=== PATIENT | male | born 1960 | race Two or more races ===

== ENCOUNTER 2023-03-28 16:49 | Inpatient (IN) | payer MEDICAID, OTHER ==
[~2023-03-28] VITALS: Ht 165.1 cm; Wt 75.0 kg
[~2023-03-28 16:49] MED LIST: ENAL2.5T7 PO; TERB250T66 PO
[2023-03-28] MEDS ORDERED: ACETAMINOPHEN 325 MG TAB PO ONE (18:00)
[2023-03-28] MEDS ORDERED: SODIUM CHLORIDE 0.9% 1,000 ML IV ONE (18:00)
[2023-03-28] MEDS ORDERED: KETOROLAC TROMETH 30 MG/ML 1ML VIAL IV ONE (18:00)
[2023-03-28 18:11] LABS: Basophils # (auto) 0.1 10 ^3/uL (0-0.2); Basophils % (auto) 0.6 % (0.0-2.0); Eosinophils # (auto) 0.1 10 ^3/uL (0-0.8); Eosinophils % (auto) 0.9 % (0.0-7.0); Hematocrit 44.9 % (41.0-53.0); Lymphocytes # (auto) 2.1 10 ^3/uL (0.4-5.4); Lymphocytes % (auto) 20.3 % (10.0-50.0); Mean Corpuscular Hemoglobin 33.3 pg (28.0-32.0); Mean Corpuscular Hgb Conc. 35.6 g/dL (32.0-36.0); Mean Corpuscular Volume 93.4 fL (80.0-100.0); Monocytes # (auto) 0.9 10 ^3/uL (0-1.3); Monocytes % (auto) 9.2 % (0.0-12.0); Neutrophils # (auto) 7.1 10 ^3/uL (1.6-8.6); Nucleated Red Blood Cells % 0.1 %; Red Blood Cells 4.81 10^6/uL (4.5-5.90); Red Cell Distribution Width 12.8 % (11.8-14.3); White Blood Cell 10.2 10^3/uL (4.4-10.8)
[2023-03-28 18:51] LABS: Albumin 3.6 g/dL (3.4-5.0); Bilirubin, Total 2.1 mg/dL (0.2-1.0); Calcium 8.8 mg/dL (8.5-10.1); Potassium 3.6 mmol/L (3.5-5.1); Total Protein 7.7 g/dL (6.4-8.2)
[2023-03-28 19:05] LABS: Urine Bacteria NONE SEEN /hpf (None Seen); Urine Blood Negative /uL (Negative); Urine Mucus MODERATE (None Seen); Urine Specific Gravity 1.031 (1.001-1.035); Urine WBC 3 /hpf (0 - 3)
[2023-03-28] MEDS ORDERED: IOHEXOL 300 MG/ML 100ML BOTTLE IJ ONE (19:11)
[2023-03-28] MEDS ORDERED: cefTRIAXone 1GM/50ML D5W 50 ML IV ONE (21:15)
[2023-03-28] MEDS ORDERED: metroNIDAZOLE 500MG/100ML 100 ML IV ONE (21:15)
[2023-03-28] MEDS ORDERED: ACETAMINOPHEN 325 MG TAB PO PRN (22:30)
[2023-03-28] MEDS ORDERED: DEXTROSE (50%) 50ML SYRG IV PRN (22:30)
[2023-03-28] MEDS ORDERED: ONDANSETRON HCL 4 MG/2 ML VIAL IV PRN (22:30)
[2023-03-28] MEDS ORDERED: HYDROcodone-ACET 5/325MG TAB PO PRN (22:30)
[2023-03-28] MEDS ORDERED: DOCUSATE SOD 100 MG CAP PO PRN (22:30)
[2023-03-28] MEDS ORDERED: MORPHINE SULFATE INJ 2 MG/ml SYRG IV PRN (22:30)
[2023-03-28] MEDS: SODIUM CHLORIDE 0.9% 1,000 ML IV SCH (23:50)
[2023-03-29] MEDS ORDERED: MORPHINE SULFATE INJ 2 MG/ml SYRG IV PRN
[2023-03-29] MEDS ORDERED: NITROGLYCERIN 0.4 MG SL TAB SL PRN
[2023-03-29] MEDS: ACCU-CHEK COMFORT CURVE STRIP VI SCH ×4 (00:21→18:05)
[2023-03-29 01:22] VITALS: BP 136/102
[2023-03-29 01:41] VITALS: BP 136/102
[2023-03-29 03:43] VITALS: BP 96/67
[2023-03-29] MEDS: InsuLIN REG 1unit/0.01ml Soln (100units/ml) SC SCH ×4 (06:00→18:05)
[2023-03-29 06:08] LABS: Albumin 3.3 g/dL (3.4-5.0); BUN/Creatinine Ratio 22.7 (10.0-20.0); Calcium 8.1 mg/dL (8.5-10.1); Potassium 3.7 mmol/L (3.5-5.1)
[2023-03-29 06:11] LABS: Bilirubin, Total 1.4 mg/dL (0.2-1.0)
[2023-03-29 06:33] LABS: Basophils # (auto) 0 10 ^3/uL (0-0.2); Eosinophils # (auto) 0.2 10 ^3/uL (0-0.8); Monocytes # (auto) 0.6 10 ^3/uL (0-1.3); Red Cell Distribution Width 12.7 % (11.8-14.3)
[2023-03-29 06:36] LABS: Basophils % (auto) 0.1 % (0.0-2.0); Eosinophils % (auto) 2.2 % (0.0-7.0); Hematocrit 40.7 % (41.0-53.0); Hemoglobin 14.7 g/dL (13.5-17.5); Lymphocytes # (auto) 1.2 10 ^3/uL (0.4-5.4); Lymphocytes % (auto) 16.7 % (10.0-50.0); Mean Corpuscular Hemoglobin 33.2 pg (28.0-32.0); Mean Corpuscular Volume 92.3 fL (80.0-100.0); Monocytes % (auto) 7.9 % (0.0-12.0); Neutrophils # (auto) 5.4 10 ^3/uL (1.6-8.6); Neutrophils % (auto) 73.1 % (37.0-80.0); Red Blood Cells 4.42 10^6/uL (4.5-5.90); White Blood Cell 7.3 10^3/uL (4.4-10.8)
[2023-03-29] MEDS: metroNIDAZOLE 500MG/100ML 100 ML IV SCH ×3 (06:48→21:35)
[2023-03-29] MEDS: cefTRIAXone 1GM/50ML D5W 50 ML IV SCH (09:37)
[2023-03-29] MEDS: FAMOTIDINE (10MG/ML) 2ML VL IV SCH (12:35)
[2023-03-29] MEDS ORDERED: TAMS0.4C36 PO (13:17)
[2023-03-29] MEDS ORDERED: METF-370 PO (13:17)
[2023-03-29] MEDS ORDERED: OMEP-260 PO (13:17)
[2023-03-29] MEDS: SODIUM CHLORIDE 0.9% 1,000 ML IV SCH (15:30)
[2023-03-29 16:30] VITALS: BP 140/96
[2023-03-29 22:00] VITALS: BP 124/87
[2023-03-30 05:00] VITALS: BP 124/89
[2023-03-30] MEDS: metroNIDAZOLE 500MG/100ML 100 ML IV SCH ×2 (05:18→14:45)
[2023-03-30] MEDS: ACCU-CHEK COMFORT CURVE STRIP VI SCH ×3 (05:21→12:24)
[2023-03-30] MEDS: InsuLIN REG 1unit/0.01ml Soln (100units/ml) SC SCH ×3 (05:22→12:25)
[2023-03-30 05:53] LABS: Basophils # (auto) 0 10 ^3/uL (0-0.2); Basophils % (auto) 0.3 % (0.0-2.0); Eosinophils # (auto) 0.2 10 ^3/uL (0-0.8); Eosinophils % (auto) 3.9 % (0.0-7.0); Hematocrit 38.8 % (41.0-53.0); Hemoglobin 13.9 g/dL (13.5-17.5); Lymphocytes # (auto) 1.6 10 ^3/uL (0.4-5.4); Lymphocytes % (auto) 25.3 % (10.0-50.0); Mean Corpuscular Hemoglobin 33.5 pg (28.0-32.0); Mean Corpuscular Hgb Conc. 35.9 g/dL (32.0-36.0); Mean Corpuscular Volume 93.1 fL (80.0-100.0); Monocytes # (auto) 0.5 10 ^3/uL (0-1.3); Monocytes % (auto) 7.6 % (0.0-12.0); Neutrophils % (auto) 62.9 % (37.0-80.0); Red Blood Cells 4.16 10^6/uL (4.5-5.90); Red Cell Distribution Width 12.7 % (11.8-14.3); White Blood Cell 6.3 10^3/uL (4.4-10.8)
[2023-03-30 06:06] LABS: Albumin 2.8 g/dL (3.4-5.0); BUN/Creatinine Ratio 21.2 (10.0-20.0); Calcium 8.5 mg/dL (8.5-10.1); Potassium 3.8 mmol/L (3.5-5.1)
[2023-03-30 06:15] LABS: Bilirubin, Total 0.8 mg/dL (0.2-1.0); Total Protein 6.4 g/dL (6.4-8.2)
[2023-03-30] MEDS: SODIUM CHLORIDE 0.9% 1,000 ML IV SCH (07:40)
[2023-03-30 07:50] VITALS: BP 133/103
[2023-03-30] MEDS: FAMOTIDINE (10MG/ML) 2ML VL IV SCH (09:05)
[2023-03-30] MEDS: cefTRIAXone 1GM/50ML D5W 50 ML IV SCH (09:05)
[2023-03-30 11:50] VITALS: BP 147/90
[2023-03-30] MEDS ORDERED: METR500T PO (16:03)
[2023-03-30] MEDS ORDERED: AUG875T PO (16:03)
[2023-04-01 13:49] LABS: Hepatitis C Antibody Negative (Negative)
== END 2023-03-30 17:35 | disposition home or self-care (01) | DRG 244 ==
LOC: ER 16:49 → OVERFLOW 23:52 → WEST WING 03-29 14:06
PROVIDERS: ADMIT Nurse Practitioner Family; ATTEND Internal Medicine
PROC: 5A09357 Assistance with Respiratory Ventilation, Less than 24 Consecutive Hours, Continuous Positive Airway Pressure (ICD-10-PCS; principal; 2023-03-29)
DX: K57.32 Diverticulitis of large intestine without perforation or abscess without bleeding (principal); N17.0 Acute kidney failure with tubular necrosis; K76.0 Fatty (change of) liver, not elsewhere classified; E11.9 Type 2 diabetes mellitus without complications; I10 Essential (primary) hypertension; E78.5 Hyperlipidemia, unspecified; R59.1 Generalized enlarged lymph nodes; M54.10 Radiculopathy, site unspecified; Z87.891 Personal history of nicotine dependence; Z87.11 Personal history of peptic ulcer disease; Z82.49 Family history of ischemic heart disease and other diseases of the circulatory system
CPT/HCPCS: 36415; 74177; 76705; 80053; 81001; 82378; 82962; 83690; 85025; 86803; 87340; 94660; 96365; 96366; 96368; 96375; G0378; J0696; J1815; J1885; J3490

== ENCOUNTER 2023-07-29 10:18 | Emergency (ER) | payer MEDICAID ==
[~2023-07-29] VITALS: Ht 165.1 cm; Wt 70.4 kg
[~2023-07-29 10:18] MED LIST changes: +AUG875T PO; +ENAL1TAB42 PO; -ENAL2.5T7 PO; +METF-370 PO; +METR500T PO; +OMEP1CAP70 PO; +TAMS0.4C36 PO; -TERB250T66 PO; +TERB250T74 PO
[2023-07-29 10:35] VITALS: BP 115/87; PULSE 69; RESP 18; O2SAT 95
[2023-07-29] MEDS ORDERED: OLOP0.2S14 OP (12:17)
== END 2023-07-29 12:51 | disposition home or self-care (01) ==
LOC: ER 10:18
DX: H10.13 Acute atopic conjunctivitis, bilateral (principal); Z79.899 Other long term (current) drug therapy

== ENCOUNTER 2023-08-06 11:53 | Inpatient (IN) | payer MEDICAID ==
[~2023-08-06] VITALS: Ht 165.1 cm; Wt 74.5 kg
[~2023-08-06 11:53] MED LIST changes: +OLOP0.2S14 OP
[2023-08-06] MEDS ORDERED: SODIUM CHLORIDE 0.9% 1,000 ML IV ONE (13:00)
[2023-08-06] MEDS ORDERED: PANTOPRAZOLE 40 MG/10 ML VIAL INJ IV ONE (13:00)
[2023-08-06 14:34] LABS: INR 1.13 (0.9-1.15); Partial Thromboplastin Time 27.9 SEC (24.5-34.5); Prothrombin Time 11.8 sec (9.3-11.8)
[2023-08-06] MEDS ORDERED: DEXTROSE (50%) 50ML SYRG IV PRN (17:00)
[2023-08-06] MEDS ORDERED: ACETAMINOPHEN 325 MG TAB PO PRN (17:00)
[2023-08-06] MEDS: InsuLIN REG 1unit/0.01ml Soln (100units/ml) SC SCH ×2 (17:49→21:53)
[2023-08-06] MEDS: ACCU-CHEK COMFORT CURVE STRIP VI SCH ×2 (17:49→21:53)
[2023-08-06] MEDS: SODIUM CHLORIDE 0.9% 1,000 ML IV SCH (17:51)
[2023-08-06] MEDS ORDERED: hydrALAZINE HCL 20 MG/ML VL IV PRN (18:15)
[2023-08-06 20:02] LABS: Hematocrit 41.9 % (41.0-53.0); Hemoglobin 14.7 g/dL (13.5-17.5); Mean Corpuscular Hemoglobin 32.8 pg (28.0-32.0); Mean Corpuscular Volume 93.7 fL (80.0-100.0); Red Blood Cells 4.48 10^6/uL (4.5-5.90); Red Cell Distribution Width 12.3 % (11.8-14.3); White Blood Cell 5.7 10^3/uL (4.4-10.8)
[2023-08-06 20:05] LABS: Band Neutrophils % (manual) 0; Basophils % (manual) 0 (0.0-2.0); Blast Cells 0; Metamyelocytes % 0; Myelocytes % 0; Promyelocytes % 0; Reactive Lymphocytes 0
[2023-08-06 21:39] LABS: Eosinophils % (manual) 18 (0-7); Lymphocytes % (manual) 40 (10.0-50.0); Monocytes % (manual) 7 (0-12); Platelet Estimate Adequate; RBC Morphology Normal
[2023-08-06 22:08] VITALS: BP 150/99; PULSE 64; RESP 18; TEMP 98; O2SAT 99
[2023-08-06 22:21] VITALS: BP 150/99; PULSE 64; RESP 18; TEMP 98; O2SAT 99
[2023-08-06] MEDS ORDERED: FERR324T4 PO (23:01)
[2023-08-07] MEDS: SODIUM CHLORIDE 0.9% 1,000 ML IV SCH ×3 (03:00→23:16)
[2023-08-07 04:43] VITALS: BP 137/98; PULSE 63; RESP 16; TEMP 97.9; O2SAT 96
[2023-08-07] MEDS: ACCU-CHEK COMFORT CURVE STRIP VI SCH ×4 (06:32→22:08)
[2023-08-07] MEDS: InsuLIN REG 1unit/0.01ml Soln (100units/ml) SC SCH ×4 (06:32→22:00)
[2023-08-07 06:42] LABS: Basophils # (auto) 0 10 ^3/uL (0-0.2); Basophils % (auto) 0.5 % (0.0-2.0); Eosinophils # (auto) 1.1 10 ^3/uL (0-0.8); Hematocrit 42.2 % (41.0-53.0); Hemoglobin 14.7 g/dL (13.5-17.5); Lymphocytes # (auto) 2.2 10 ^3/uL (0.4-5.4); Lymphocytes % (auto) 35.9 % (10.0-50.0); Mean Corpuscular Hemoglobin 32.7 pg (28.0-32.0); Mean Corpuscular Hgb Conc. 34.7 g/dL (32.0-36.0); Mean Corpuscular Volume 94.2 fL (80.0-100.0); Monocytes # (auto) 0.5 10 ^3/uL (0-1.3); Monocytes % (auto) 7.6 % (0.0-12.0); Neutrophils # (auto) 2.3 10 ^3/uL (1.6-8.6); Neutrophils % (auto) 37.4 % (37.0-80.0); Nucleated Red Blood Cells % 0.1 %; Red Blood Cells 4.48 10^6/uL (4.5-5.90); Red Cell Distribution Width 12.3 % (11.8-14.3); White Blood Cell 6.1 10^3/uL (4.4-10.8)
[2023-08-07 06:58] LABS: Eosinophils % (auto) 18.6 % (0.0-7.0)
[2023-08-07 07:08] LABS: Alanine Aminotransferase 26 U/L (7-40); Alkaline Phosphatase 59 U/L (46-116); Anion Gap 6 (5-15); Aspartate Aminotransferase 17 U/L (13-40); BUN/Creatinine Ratio 8.9 (10.0-20.0); Blood Urea Nitrogen 8 mg/dL (9-23); Calcium 8.8 mg/dL (8.5-10.1); Carbon Dioxide 27 mmol/L (20-30); Chloride 106 mmol/L (98-107); Glucose 117 mg/dL (74-106); Potassium 3.7 mmol/L (3.5-5.1); Sodium 139 mmol/L (136-145)
[2023-08-07 07:09] LABS: Bilirubin, Total 1.1 mg/dL (0.2-1.0); Total Protein 6.5 g/dL (5.7-8.2)
[2023-08-07 08:30] VITALS: BP 138/97; PULSE 68; RESP 18; TEMP 98.6; O2SAT 91
[2023-08-07] MEDS: OLOPATADINE HCL 0.2% OP SCH (10:00)
[2023-08-07] MEDS ORDERED: ENALAPRIL MALEATE 2.5 MG TAB PO SCH (10:00)
[2023-08-07] MEDS: TAMSULOSIN HYDROCHLORIDE 0.4 MG CAP PO SCH (11:06)
[2023-08-07] MEDS: PANTOPRAZOLE 40 MG/10 ML VIAL INJ IV SCH (11:06)
[2023-08-07] MEDS ORDERED: ENALAPRIL MALEATE 10 MG TAB PO ONE (11:15)
[2023-08-07 13:18] VITALS: BP 140/82; PULSE 45; RESP 16; TEMP 98.1; O2SAT 96
[2023-08-07] MEDS: cefTRIAXone 1GM/50ML D5W 50 ML IV SCH (13:31)
[2023-08-07] MEDS: metroNIDAZOLE 500MG/100ML 100 ML IV SCH ×2 (14:11→22:05)
[2023-08-07 16:39] VITALS: BP 125/93; PULSE 60; RESP 18; TEMP 98; O2SAT 96
[2023-08-07 22:00] VITALS: BP 126/88; PULSE 63; RESP 16; TEMP 97.6; O2SAT 94
[2023-08-08] VITALS (10 sets, daily range): BP systolic 103–139; BP diastolic 73–97; PULSE 58–80; RESP 14–16; TEMP 36.7; O2SAT 94–99
[2023-08-08 05:47] LABS: Anion Gap 8 (5-15); Carbon Dioxide 25 mmol/L (20-30); Chloride 106 mmol/L (98-107); Potassium 3.9 mmol/L (3.5-5.1); Sodium 139 mmol/L (136-145)
[2023-08-08 05:48] LABS: Calcium 9.2 mg/dL (8.5-10.1)
[2023-08-08 05:53] LABS: BUN/Creatinine Ratio 7.8 (10.0-20.0); Blood Urea Nitrogen 8 mg/dL (9-23); Glucose 114 mg/dL (74-106)
[2023-08-08 06:01] LABS: Basophils # (auto) 0 10 ^3/uL (0-0.2); Basophils % (auto) 0.7 % (0.0-2.0); Eosinophils # (auto) 0.9 10 ^3/uL (0-0.8); Eosinophils % (auto) 14.9 % (0.0-7.0); Hematocrit 43.8 % (41.0-53.0); Hemoglobin 15.6 g/dL (13.5-17.5); Lymphocytes # (auto) 2.3 10 ^3/uL (0.4-5.4); Mean Corpuscular Hemoglobin 32.6 pg (28.0-32.0); Mean Corpuscular Hgb Conc. 35.5 g/dL (32.0-36.0); Mean Corpuscular Volume 91.8 fL (80.0-100.0); Monocytes # (auto) 0.4 10 ^3/uL (0-1.3); Monocytes % (auto) 7.2 % (0.0-12.0); Neutrophils # (auto) 2.1 10 ^3/uL (1.6-8.6); Neutrophils % (auto) 37.2 % (37.0-80.0); Nucleated Red Blood Cells % 0.1 %; Red Blood Cells 4.77 10^6/uL (4.5-5.90); Red Cell Distribution Width 12.1 % (11.8-14.3); White Blood Cell 5.8 10^3/uL (4.4-10.8)
[2023-08-08] MEDS: metroNIDAZOLE 500MG/100ML 100 ML IV SCH ×3 (06:02→21:32)
[2023-08-08] MEDS: InsuLIN REG 1unit/0.01ml Soln (100units/ml) SC SCH ×4 (06:11→22:00)
[2023-08-08] MEDS: ACCU-CHEK COMFORT CURVE STRIP VI SCH ×4 (06:11→21:40)
[2023-08-08 08:44] LABS: Urine Bacteria NONE SEEN /hpf (None Seen); Urine Blood Negative /uL (Negative); Urine Clarity Clear (Clear); Urine Color Yellow (Yellow); Urine Mucus FEW (None Seen); Urine Protein, UAD Negative (Negative); Urine Specific Gravity 1.018 (1.001-1.035); Urine Urobilinogen Normal (Negative); Urine WBC <1 /hpf (0 - 3)
[2023-08-08] MEDS ORDERED: ENALAPRIL MALEATE 10 MG TAB PO SCH (10:00)
[2023-08-08] MEDS: OLOPATADINE HCL 0.2% OP SCH (10:00)
[2023-08-08] MEDS: SODIUM CHLORIDE 0.9% 1,000 ML IV SCH ×2 (10:04→18:06)
[2023-08-08] MEDS: cefTRIAXone 1GM/50ML D5W 50 ML IV SCH (10:04)
[2023-08-08] MEDS: PANTOPRAZOLE 40 MG/10 ML VIAL INJ IV SCH (10:04)
[2023-08-08] MEDS: TAMSULOSIN HYDROCHLORIDE 0.4 MG CAP PO SCH (10:21)
[2023-08-08] MEDS ORDERED: ENOXAPARIN SOD 40 MG/0.4 ML SYRINGE SC ONE (14:30)
[2023-08-08] MEDS ORDERED: dilTIAZem 25 MG/5 ML VIAL IV ONE (17:00)
[2023-08-08] MEDS: METOPROLOL TARTRATE 25 MG TAB PO SCH ×2 (21:40→22:00)
[2023-08-09] MEDS: SODIUM CHLORIDE 0.9% 1,000 ML IV SCH (02:28)
[2023-08-09 05:00] VITALS: BP 117/86; PULSE 65; RESP 12; TEMP 98.1; O2SAT 98
[2023-08-09] MEDS: metroNIDAZOLE 500MG/100ML 100 ML IV SCH ×3 (06:25→21:57)
[2023-08-09] MEDS: ACCU-CHEK COMFORT CURVE STRIP VI SCH ×4 (06:26→22:00)
[2023-08-09] MEDS: InsuLIN REG 1unit/0.01ml Soln (100units/ml) SC SCH ×4 (06:26→22:00)
[2023-08-09 08:00] VITALS: PULSE 57; PULSE 66; RESP 18
[2023-08-09] MEDS: cefTRIAXone 1GM/50ML D5W 50 ML IV SCH (08:53)
[2023-08-09 09:28] VITALS: BP 118/77; PULSE 57; RESP 16; TEMP 98.2; O2SAT 95
[2023-08-09] MEDS: OLOPATADINE HCL 0.2% OP SCH (10:00)
[2023-08-09] MEDS: PANTOPRAZOLE 40 MG/10 ML VIAL INJ IV SCH (10:21)
[2023-08-09] MEDS: ENOXAPARIN SOD 40 MG/0.4 ML SYRINGE SC SCH (10:22)
[2023-08-09] MEDS: METOPROLOL TARTRATE 25 MG TAB PO SCH ×2 (10:23→21:58)
[2023-08-09] MEDS: TAMSULOSIN HYDROCHLORIDE 0.4 MG CAP PO SCH (10:23)
[2023-08-09 16:35] VITALS: BP 128/94; PULSE 56; RESP 16; TEMP 98.1; O2SAT 99
[2023-08-09 20:00] VITALS: BP 118/77; PULSE 57; PULSE 88; TEMP 36.7
[2023-08-09 22:00] VITALS: BP 136/84; PULSE 68; RESP 16; TEMP 97.7; O2SAT 96
[2023-08-10 05:00] VITALS: BP 136/96; PULSE 56; RESP 16; TEMP 97.7; O2SAT 95
[2023-08-10] MEDS: metroNIDAZOLE 500MG/100ML 100 ML IV SCH (06:42)
[2023-08-10] MEDS: InsuLIN REG 1unit/0.01ml Soln (100units/ml) SC SCH ×2 (06:42→11:30)
[2023-08-10] MEDS: ACCU-CHEK COMFORT CURVE STRIP VI SCH ×2 (06:43→11:45)
[2023-08-10 08:00] VITALS: BP 129/94; PULSE 55; PULSE 60; RESP 18; TEMP 98.6; O2SAT 97
[2023-08-10] MEDS: cefTRIAXone 1GM/50ML D5W 50 ML IV SCH (09:02)
[2023-08-10] MEDS: OLOPATADINE HCL 0.2% OP SCH (09:02)
[2023-08-10 09:26] LABS: Hematocrit 44.5 % (41.0-53.0); Hemoglobin 15.6 g/dL (13.5-17.5); Mean Corpuscular Hemoglobin 32.8 pg (28.0-32.0); Mean Corpuscular Volume 93.7 fL (80.0-100.0); Red Blood Cells 4.74 10^6/uL (4.5-5.90); Red Cell Distribution Width 12.3 % (11.8-14.3); White Blood Cell 4.6 10^3/uL (4.4-10.8)
[2023-08-10 09:34] LABS: Chloride 106 mmol/L (98-107); Potassium 3.9 mmol/L (3.5-5.1); Sodium 139 mmol/L (136-145)
[2023-08-10 09:35] LABS: Anion Gap 6 (5-15); Calcium 9.4 mg/dL (8.5-10.1); Carbon Dioxide 27 mmol/L (20-30)
[2023-08-10 09:40] LABS: BUN/Creatinine Ratio 11.1 (10.0-20.0); Basophils % (manual) 0 (0.0-2.0); Blast Cells 0; Blood Urea Nitrogen 13 mg/dL (9-23); Glucose 88 mg/dL (74-106); Promyelocytes % 0; Reactive Lymphocytes 0
[2023-08-10] MEDS: TAMSULOSIN HYDROCHLORIDE 0.4 MG CAP PO SCH (09:57)
[2023-08-10] MEDS: ENOXAPARIN SOD 40 MG/0.4 ML SYRINGE SC SCH (09:57)
[2023-08-10] MEDS: PANTOPRAZOLE 40 MG/10 ML VIAL INJ IV SCH (09:57)
[2023-08-10] MEDS: METOPROLOL TARTRATE 25 MG TAB PO SCH (09:58)
[2023-08-10 10:14] LABS: Band Neutrophils % (manual) 6; Eosinophils % (manual) 10 (0-7); Lymphocytes % (manual) 11 (10.0-50.0); Metamyelocytes % 10; Monocytes % (manual) 5 (0-12); Myelocytes % 8; Platelet Estimate Adequate
[2023-08-10] MEDS ORDERED: MET25T PO (11:24)
[2023-08-10] MEDS ORDERED: APIX5TAB PO (11:24)
[2023-08-10] MEDS ORDERED: CIPR-173 PO (11:25)
[2023-08-10] MEDS ORDERED: METR-344 PO (11:25)
[2023-08-10 12:41] VITALS: BP 133/94; PULSE 52; RESP 18; TEMP 98.7; O2SAT 95
[2023-08-10 13:00] VITALS: BP 133/94; PULSE 52; RESP 18; TEMP 98.7; O2SAT 95
== END 2023-08-10 13:42 | disposition home or self-care (01) | DRG 244 ==
LOC: ER 11:53 → OVERFLOW 16:50 → WEST WING 21:05 → TELE-WESTW 08-08 23:52
PROVIDERS: ADMIT Nurse Practitioner Family; ATTEND Nurse Practitioner Acute Care
PROC: 5A09357 Assistance with Respiratory Ventilation, Less than 24 Consecutive Hours, Continuous Positive Airway Pressure (ICD-10-PCS; principal; 2023-08-08)
DX: K57.32 Diverticulitis of large intestine without perforation or abscess without bleeding (principal); K76.0 Fatty (change of) liver, not elsewhere classified; E11.9 Type 2 diabetes mellitus without complications; K76.89 Other specified diseases of liver; N40.0 Benign prostatic hyperplasia without lower urinary tract symptoms; I10 Essential (primary) hypertension; K21.9 Gastro-esophageal reflux disease without esophagitis; H53.9 Unspecified visual disturbance; Z60.2 Problems related to living alone; E78.5 Hyperlipidemia, unspecified; I48.91 Unspecified atrial fibrillation; Z53.29 Procedure and treatment not carried out because of patient's decision for other reasons; Z79.01 Long term (current) use of anticoagulants; Z82.49 Family history of ischemic heart disease and other diseases of the circulatory system; Z87.11 Personal history of peptic ulcer disease; Z80.42 Family history of malignant neoplasm of prostate; Z79.899 Other long term (current) drug therapy
CPT/HCPCS: 36415; 70450; 71045; 74177; 80048; 80053; 81001; 82270; 82962; 83036; 85007; 85025; 85027; 85610; 85730; 86850; 86900; 86901; 93005; 93306; 94660; C9113; G0378; J0696; J1815; J3490

== ENCOUNTER 2024-11-09 17:53 | Inpatient (IN) | payer MEDICAID ==
[~2024-11-09] VITALS: Ht 162.6 cm; Wt 75.9 kg
[~2024-11-09 17:53] MED LIST changes: +APIX5TAB PO; -AUG875T PO; +CIPR-173 PO; +FERR324T4 PO; +MET25T PO; +METR-344 PO; -METR500T PO; -TAMS0.4C36 PO; +TAMS0.4C39 PO; -TERB250T74 PO; +TERB250T92 PO
--- NOTE | 2024-11-09 17:56 | ECG ---
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
--- NOTE | 2024-11-09 18:52 | DVH ---
EXAMINATION: AP portable chest radiograph CLINICAL HISTORY: afib rvr COMPARISON: XY CHEST XRAY 1 VIEW on DOS: 08/08/23 FINDINGS: Cardiac silhouette appears mildly enlarged. Mild central vascular redistribution. No lobar consolidat ion. No definite pleural effusion or pneumothorax. IMPRESSION: Cardiomegaly with mild central vascular congestion.
--- NOTE | 2024-11-09 18:53 | ECG ---
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
[2024-11-09] MEDS: dilTIAZem 25 MG/5 ML VIAL IV ONE (18:54)
[2024-11-09 19:01] VITALS: PULSE 120; RESP 28; O2SAT 95
[2024-11-09 19:19] LABS: Basophils # (auto) 0 10 ^3/uL (0-0.2); Basophils % (auto) 0.8 % (0.0-2.0); Eosinophils # (auto) 0.2 10 ^3/uL (0-0.8); Eosinophils % (auto) 4.2 % (0.0-7.0); Hematocrit 44.3 % (41.0-53.0); Hemoglobin 15.2 g/dL (13.5-17.5); Lymphocytes # (auto) 2.1 10 ^3/uL (0.4-5.4); Lymphocytes % (auto) 35.4 % (10.0-50.0); Mean Corpuscular Hgb Conc. 34.4 g/dL (32.0-36.0); Monocytes # (auto) 0.3 10 ^3/uL (0-1.3); Monocytes % (auto) 5.6 % (0.0-12.0); Neutrophils # (auto) 3.1 10 ^3/uL (1.6-8.6); Nucleated Red Blood Cells % 0.1 %; Platelet Count (auto) 240 10^3/uL (140-450); Red Blood Cells 4.62 10^6/uL (4.5-5.90); Red Cell Distribution Width 12.8 % (11.8-14.3); White Blood Cell 5.8 10^3/uL (4.4-10.8)
[2024-11-09 19:34] LABS: INR 1.13 (0.9-1.15); Partial Thromboplastin Time 26.7 SEC (24.5-34.5); Prothrombin Time 11.9 sec (9.3-11.8)
[2024-11-09 19:48] LABS: Albumin 4.4 g/dL (3.2-4.8); Alkaline Phosphatase 71 U/L (46-116); Anion Gap 9 (5-15); BUN/Creatinine Ratio 16.8 (10.0-20.0); Blood Urea Nitrogen 20 mg/dL (9-23); Calcium 9.7 mg/dL (8.7-10.4); Carbon Dioxide 23 mmol/L (20-31); Magnesium 2.3 mg/dL (1.6-2.6); Potassium 4.1 mmol/L (3.5-5.1); Sodium 141 mmol/L (136-145)
[2024-11-09 19:49] LABS: Total Protein 6.7 g/dL (5.7-8.2)
[2024-11-09 19:51] LABS: Alanine Aminotransferase 90 U/L (7-40); Aspartate Aminotransferase 59 U/L (13-40); Chloride 109 mmol/L (98-107); Glucose 134 mg/dL (74-106)
--- NOTE | 2024-11-09 20:00 | ED.PDOC ---
HPI Comments 63-year-old male with PMHx A-Fib, HTN brought in by EMS presents with a chief complaint of SOB x onset 0400 this morning. Patient states that at home he was having "panting breathing" and states that it felt like "I didn't know how to breathe anymore". Patient was found to be in A-Fib RVR by EMS. Patient reports that he has been told he has A-Fib in the past and is on Eliquis. Patient denies any chest pain, palpitations, fever, cough or edema. Chief Complaint: Palpitations Time Seen by MD: 19:42 Primary Care Provider: KARMEN Velásquez Notes: Medications, Allergies Allergies: Coded Allergies: NO KNOWN ALLERGIES (Unverified , 08/11/15) Home Meds Active Scripts Metronidazole (Flagyl) 500 Mg Tab, 1 TAB PO TID, #21 TAB Prov:MARLENI RUIZ MD 08/10/23 Ciprofloxacin Hcl (Cipro) 500 Mg Tab, 1 TAB PO BID, #14 TAB Prov:MARLENI RUIZ MD 08/10/23 Metoprolol Tartrate (Lopressor) 25 Mg Tb, 25 MG PO BID for 30 Days, #60 TAB 5 Refills Prov:MARLENI RUIZ MD 08/10/23 Apixaban Base (ELIQUIS) 5 Mg Tab, 5 MG PO BID for 30 Days, #60 TAB 5 Refills Prov:MARLENI RUIZ MD 08/10/23 Olopatadine HCl (Olopatadine Hydrochloride) 0.2 % Ida, 0.2 % OP DAILY for 14 Da ys, #1 DROP Prov:MANDY VOGEL MD 07/29/23 Reported Medications Ferrous Sulfate (FERROUS SULFATE) 324 Mg Tab, 2 TAB PO DAILY 08/06/23 Tamsulosin Hcl (Tamsulosin Hcl) 0.4 Mg Cap, 1 CAP PO DAILY 03/29/23 Omeprazole (Omeprazole Dr) 20 Mg Cap, 1 CAP PO DAILY 03/29/23 Metformin Hydrochloride (Metformin Hcl) 500 Mg Tab, 1 TAB PO DAILY 03/29/23 Terbinafine Hcl (Terbinafine Hcl) 250 Mg Tab, 250 MG PO DAILY, TAB 08/11/15 Enalapril Maleate (Enalapril Maleate) 2.5 Mg Tab, 20 MG PO DAILY, MG 08/11/15 Information Source: Patient Mode of Arrival: EMS Severity: Moderate Timing: Hours Duration: Intermittent Prehospital treatment: None Onset: At Rest Cardiac Risk Factors: HTN PE Risk Factors: None History of: None Past Medical History PAST MEDICAL HISTORY: DM, High Lipids, HTN, PUD Past Medical History (Other): AFib Surgical History (Other): GI procedure for bleeding ulcer Family History Family History: Reviewed,noncontributory to illness Social History Smoker: Non-Smoker, Quit Greater Than 1 Year Alcohol: Denies ETOH Use Drugs: Denies Drug Use Lives In: Home Constitutional: denies: chills, diaphoresis, fatigue, fever, malaise, sweats, weakness, others EENTM: denies: blurred vision, double vision, ear bleeding, ear discharge, ear drainage, ear pain, ear ringing, eye pain, eye redness, hearing loss, mouth pain , mouth swelling, nasal discharge, nose bleeding, nose congestion, nose pain, photophobia, tearing, throat pain, throat swelling, voice changes, others Respiratory: reports: shortness of breath; denies: cough, hemoptysis, orthopnea, SOB at rest, SOB with excertion, stridor, wheezing, others Cardiovascular: denies: chest pain, dizzy spells, diaphoresis, Dyspnea on exertion, edema, irregular heart beat, left arm pain, lightheadedness, palpitations, PND, syncope, others Gastrointestinal: denies: abdomen distended, abdominal pain, blood streaked bowels, constipated, diarrhea, dysphagia, difficulty swallowing, hematemesis, melena, nausea, poor appetite, poor fluid intake, rectal bleeding, rectal pain, vomiting, others Genitourinary: denies: burning, dysuria, flank pain, frequency, hematuria, incontinence, penile discharge, penile sore, pain, testicle pain, testicle swelling, urgency, others Neurological: denies: dizziness, fainting, headache, left sided numbness, left sided weakness, numbness, paresthesia, pre-existing deficit, right sided numbness, right sided weakness, seizure, speech problems, tingling, tremors, weakness, others Musculoskeletal: denies: back pain, gout, joint pain, joint swelling, muscle pain, muscle stiffness, neck pain, others Integumetry: denies: bruises, change in color, change in hair/nails, dryness, laceration, lesions, lumps, rash, wounds, others Allergic/Immunocompromised: denies: Difficulty Healing, Frequent Infections, Hives, Itching, others Hematologic/Lymphatic: denies: anemia, blood clots, easy bleeding, easy bruising, swollen glands, others Endocrine: denies: excessive hunger, excessive sweating, excessive thirst, excessive urination, flushing, intolerance to cold, intolerance to heat, unexplained weight gain, unexplained weight loss, others Psychiatric: denies: anxiety, bipolar disorder, depression, hopeless, panic disorder, schizophrenia, sleepless, suicidal, others All Other Systems: Reviewed and Negative Physical Exam General Appearance: No Apparent Distress HEENT: Other (Unremarkable) Neck: Full Range of Motion, Normal Inspection Respiratory: Lungs Clear, No Accessory Muscle Use, Normal Breath Sounds, Re spiratory Distress (Mild with tachypnea) Cardiovascular: Irregular, No Edema, No JVD, Tachycardia Breast Exam: Deferred Gastrointestinal: Non Tender, Soft Genitalia: Deferred Pelvic: Deferred Rectal: Deferred Extremities: Normal inspection, Normal range of motion, Non-tender Neurologic: Alert (Oriented x4), Normal Affect, Normal Mood, Other (Moves all extremities with adequate strength and tone. No gross focal deficit.) Cerebellar Function: NOT DONE Reflexes: NOT DONE Skin: Dry, Normal Color, Warm Lymphatic: NOT DONE EKG EKG : Comments AFib with RVR, rate 114, normal QRS interval, QTC prolonged at 550, normal axis, possible incomplete right bundle-branch block RVH, lateral ST depression with other nonspecific T changes. Was a procedure done? Was a procedure done?: No CP Differential Dx Differential Diagnosis: A-fib, A-Flutter, TN, Pulmonary Embolus Differential Diagnosis: CHF Differential Diagnosis: Myocardial Infarction, Pericarditis, Pneumonia X-Ray, Labs, Meds, VS Vital Signs Date Time Temp Pulse Resp B/P (MAP) Pulse Ox O2 Delivery O2 Flow Rate FiO2 11/09/24 20:29 98.0 80 20 118/100 (106) 98 98.0 11/09/24 19:01 120 28 95 Room Air* 0 21 11/09/24 18:52 114 11/09/24 18:50 98.7 120 28 128/105 (113) 95 98.7 11/09/24 18:46 133 11/09/24 17:53 98.7 140 30 150/117 (128) 99 11/09/24 17:53 133 Lab Test 11/09/24 19:42 11/09/24 18:50 Range/Units Troponin I High Sensitivity 28 29 </=54 ng/L White Blood Count 5.8 4.4-10.8 10^3/uL Red Blood Count 4.62 4.5-5.90 10^6/uL Hemoglobin 15.2 13.5-17.5 g/dL Hematocrit 44.3 41.0-53.0 % Mean Corpuscular Volume 96.0 80.0-100.0 fL Mean Corpuscular Hemoglobin 33.0 H 28.0-32.0 pg Mean Corpuscular Hemoglobin Concent 34.4 32.0-36.0 g/dL Red Cell Distribution Width 12.8 11.8-14.3 % Platelet Count 240 140-450 10^3/uL Mean Platelet Volume 7.5 6.9-10.8 fL Neutrophils (%) (Auto) 54.0 37.0-80.0 % Lymphocytes (%) (Auto) 35.4 10.0-50.0 % Monocytes (%) (Auto) 5.6 0.0-12.0 % Eosinophils (%) (Auto) 4.2 0.0-7.0 % Basophils (%) (Auto) 0.8 0.0-2.0 % Neutrophils # (Auto) 3.1 1.6-8.6 10 ^3/uL Lymphocytes # (Auto) 2.1 0.4-5.4 10 ^3/uL Monocytes # (Auto) 0.3 0-1.3 10 ^3/uL Eosinophils # (Auto) 0.2 0-0.8 10 ^3/uL Basophils # (Auto) 0 0-0.2 10 ^3/uL Nucleated Red Blood Cells 0.1 % Prothrombin Time 11.9 H 9.3-11.8 sec Prothrombin Time INR 1.13 0.9-1.15 Activated Partial Thromboplast Time 26.7 24.5-34.5 SEC Sodium Level 141 136-145 mmol/L Potassium Level 4.1 3.5-5.1 mmol/L Chloride Level 109 H 98-107 mmol/L Carbon Dioxide Level 23 20-31 mmol/L Anion Gap 9 5-15 Blood Urea Nitrogen 20 9-23 mg/dL Creatinine 1.19 0.700-1.30 mg/dL Glomerular Filtration Rate Calc 69 >90 mL/min BUN/Creatinine Ratio 16.8 10.0-20.0 Serum Glucose 134 H 74-106 mg/dL Calcium Level 9.7 8.7-10.4 mg/dL Magnesium Level 2.3 1.6-2.6 mg/dL Total Bilirubin 1.0 0.2-1.0 mg/dL Aspartate Amino Transferase (AST) 59 H 13-40 U/L Alanine Aminotransferase (ALT) 90 H 7-40 U/L Alkaline Phosphatase 71 46-116 U/L B-Type Natriuretic Peptide 508.01 0-100 pg/mL Total Protein 6.7 5.7-8.2 g/dL Albumin 4.4 3.2-4.8 g/dL Current Medications Medications (Trade) Dose Ordered Sig/Christian Route Start Time Stop Time Status Last Admin Diltiazem HCl (Cardizem Injection) 10 mg ONCE ONCE IV 11/09/24 18:15 11/09/24 18:16 DC 11/09/24 18:54 PROCEDURE(s): CXRP - CHEST PORTABLE REASON: afib rvr ORDER NUMBER(s): [id number], ACCESSION NUMBER(s): [id number] EXAMINATION: AP portable chest radiograph CLINICAL HISTORY: afib rvr COMPARISON: XY CHEST XRAY 1 VIEW on DOS: 08/08/23 FINDINGS: Cardiac silhouette appears mildly enlarged. Mild central vascular redistribution. No lobar consolidation. No definite pleural effusion or pneumothorax. IMPRESSION: Cardiomegaly with mild central vascular congestion. X-Ray, Labs, Meds, VS Comment 63-year-old male with history of AFib, hypertension, hyperlipidemia, diabetes and peptic ulcer disease presenting with shortness a breath and found to be in rapid AFib Vitals remarkable for heart rate 140, respiratory rate 30, BP 150/117 Exam remarkable for irregularly irregular heart rhythm and tachypnea Rhythm strip independently interpreted by me: AFib with RVR, rate 137, no PVCs Chest x-ray: IMPRESSION: Cardiomegaly with mild central vascular congestion. CBC, CMP and 2 serial troponins unremarkable for any abnormality of acute significance. BNP 508.01 Patient treated with the following in the ED: Cardizem 10 mg IV, Lasix 40 mg IV On re-evaluation after Cardizem, heart rate was 98, oxygen saturation was normal on room air, and patient was not in respiratory distress. Blood pressure has improved. Plan is to admit the patient for rate control, diuresis and Cardiology evaluation Time of 1ST Reevaluation: 20:12 Reevaluation 1ST: Unchanged Time of 2ND Reevaluation: 21:02 Reevaluation 2ND: Improved Patient Education/Counseling: Diagnosis, Treatment, Prognosis Family Education/Counseling: No Family Present Departure 1 Departure Time of Disposition: 21:02 Impression: Primary Impression: Rapid atrial fibrillation Additional Impression: CHF (congestive heart failure) Qualified Codes: I50.9 - Heart failure, unspecified Disposition: ADMITTED INPATIENT Admit to: Tele Condition: Guarded Critical Care Note Critical Care Time?: No Stability Stability form required: No Heart Score Heart Score: Heart Score Response (Comments) Value History Slightly Suspicious [address]-Deviation 2 Age 45-64 1 Risk Factors >3 or Hx ASHD 2 Troponin Normal limit 0 Total 5 I personally scribed for ALIE LONG MD ([email or web address]) on 11/09/24 at 20:00. Electronically submitted by Virgil Pinzon ([email or web address]). ALIE LONG MD Nov 09, 2024 20:00
--- NOTE | 2024-11-09 21:28 | DVHHPRES ---
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 on 11/09/2024. Patient stated that he started having acute onset shortness of breath, and he felt that he forgets how to breathe by himself. Patient also complaining of cough without sputum production and he admitted that he had sick contacts including family members who has been coughing. Shortness of breath is not associated with palpitation, however patient had multiple episodes of palpitation with last only for few minutes however this time there was no correlation between shortness of breath and palpitation. Patient denied any chest pain, sputum production, fever, chills, motor weakness, sensory deficits, dizziness, abdominal pain, dysuria, any other symptoms. Initial evaluation patient was found to have with RVR, given Lasix 40 mg IV and diltiazem by ED physician. At the time of evaluation by myself, patient was heart rate ranging around 100-110, normotensive, patient was asymptomatic. Patient will be admitted to hospital for treatment and management of AFib with RVR, pulmonary vascular congestion questionable CHF. Past medical history: Hypertension, atrial fibrillation, peptic ulcer disease, BPH Home medication: Plavix, Eliquis, metoprolol, hydrochlorothiazide, enalapril, tamsulosin, omeprazole Allergy: None Family history: Not relevant Social history: Patient denied use of alcohol, smoking cigarette, use of any recreational drugs. Surgical history: Patient underwent cauterization of peptic ulcer disease. Review of Systems Review of Systems At the time of evaluation, patient shortness of breath significantly improved. However patient complaining of shortness of breath before. Eyes: No Pain, No Vision change, No Conjunctivae inflammation, No Eyelid inflammation, No Other, No Redness ENT: No Ear pain, No Ear discharge, No Nose pain, No Nose discharge, No Nose congestion, No Mouth pain, No Mouth swelling, No Throat pain, No Throat sw elling, No Other Cardiovascular: No Chest Pain, No Palpitations, No Orthopnea, No Paroxysmal Noc. Dyspnea, No Edema, No Lt Headedness, No Other Respiratory: No Cough, No Dry, No Shortness of breath, No SOB with excertion, No Wheezing, No Hemoptysis, No Pleuritic Pain, No Sputum, No Other Gastrointestinal: No Nausea, No Vomiting, No Abdominal Pain, No Diarrhea, No Constipation, No Melena, No Hematochezia, No Other Genitourinary: No Dysuria, No Frequency, No Incontinence, No Hematuria, No Retention, No Other Musculoskeletal: No other, No neck pain, No shoulder pain, No arm pain, No back pain, No hand pain, No leg pain, No foot pain Skin: No Rash, No Lesions, No Jaundice, No Bruising, No Other Allergies: Coded Allergies: NO KNOWN ALLERGIES (Unverified , 08/11/15) Medications Current Medications Medications Dose Ordered Sig/Christian Route Start Time Stop Time Status Last Admin Dose Admin Nitroglycerin 0.4 mg Q5MINP PRN SL 11/09/24 21:30 Morphine Sulfate 2 mg Q30M PRN IV 11/09/24 21:30 Apixaban 5 mg BID PO 11/09/24 22:00 UNV Metoprolol Succinate 25 mg DAILY PO 11/10/24 10:00 UNV Furosemide 40 mg DAILY IV 11/10/24 10:00 UNV Azithromycin 500 mg DAILY PO 11/10/24 10:00 UNV Exam Vital Signs Vital Signs Date Time Temp Pulse Resp B/P (MAP) Pulse Ox O2 Delivery O2 Flow Rate FiO2 11/09/24 20:52 97 11/09/24 20:29 98.0 20 118/100 (106) 98 98.0 11/09/24 19:01 Room Air* 0 21 General Appearance: Alert, Oriented X3 HEENT: Atraumatic, PERRLA Respiratory: Clear to auscultation, Normal air movement Cardiovascular: Normal S1, Normal S2, No murmurs Abdominal: Normal bowel sounds, Soft, No tenderness, No hepatospenomegaly Extremities: No clubbing, No cyanosis, No edema, Normal pulses, No tenderness/swelling Skin: No rashes, No breakdown, No significant lesion Neuro: Normal gait, Normal speech, Strength at 5/5 X4 ext, Normal tone Psych/Mental Status: Mental status NL Labs/Xrays Labs Test 11/09/24 19:42 11/09/24 18:50 Range/Units Troponin I High Sensitivity 28 </=54 ng/L White Blood Count 5.8 4.4-10.8 10^3/uL Red Blood Count 4.62 4.5-5.90 10^6/uL Hemoglobin 15.2 13.5-17.5 g/dL Hematocrit 44.3 41.0-53.0 % Mean Corpuscular Volume 96.0 80.0-100.0 fL Mean Corpuscular Hemoglobin 33.0 H 28.0-32.0 pg Mean Corpuscular Hemoglobin Concent 34.4 32.0-36.0 g/dL Red Cell Distribution Width 12.8 11.8-14.3 % Platelet Count 240 140-450 10^3/uL Mean Platelet Volume 7.5 6.9-10.8 fL Neutrophils (%) (Auto) 54.0 37.0-80.0 % Lymphocytes (%) (Auto) 35.4 10.0-50.0 % Monocytes (%) (Auto) 5.6 0.0-12.0 % Eosinophils (%) (Auto) 4.2 0.0-7.0 % Basophils (%) (Auto) 0.8 0.0-2.0 % Neutrophils # (Auto) 3.1 1.6-8.6 10 ^3/uL Lymphocytes # (Auto) 2.1 0.4-5.4 10 ^3/uL Monocytes # (Auto) 0.3 0-1.3 10 ^3/uL Eosinophils # (Auto) 0.2 0-0.8 10 ^3/uL Basophils # (Auto) 0 0-0.2 10 ^3/uL Nucleated Red Blood Cells 0.1 % Prothrombin Time 11.9 H 9.3-11.8 sec Prothrombin Time INR 1.13 0.9-1.15 Activated Partial Thromboplast Time 26.7 24.5-34.5 SEC Sodium Level 141 136-145 mmol/L Potassium Level 4.1 3.5-5.1 mmol/L Chloride Level 109 H 98-107 mmol/L Carbon Dioxide Level 23 20-31 mmol/L Anion Gap 9 5-15 Blood Urea Nitrogen 20 9-23 mg/dL Creatinine 1.19 0.700-1.30 mg/dL Glomerular Filtration Rate Calc 69 >90 mL/min BUN/Creatinine Ratio 16.8 10.0-20.0 Serum Glucose 134 H 74-106 mg/dL Calcium Level 9.7 8.7-10.4 mg/dL Magnesium Level 2.3 1.6-2.6 mg/dL Total Bilirubin 1.0 0.2-1.0 mg/dL Aspartate Amino Transferase (AST) 59 H 13-40 U/L Alanine Aminotransferase (ALT) 90 H 7-40 U/L Alkaline Phosphatase 71 46-116 U/L B-Type Natriuretic Peptide 508.01 0-100 pg/mL Total Protein 6.7 5.7-8.2 g/dL Albumin 4.4 3.2-4.8 g/dL Assessment/Plan Assessment/Plan Atrial fibrillation with RVR Elevated BNP ? CHF systolic versus diastolic Flu-like symptoms Hypertension BPH History of peptic ulcer disease Plan/recommendation Atrial fibrillation rate control with metoprolol 25 mg p.o. daily, apixaban 5 mg p.o. b.i.d. echocardiogram to evaluate structural abnormality of heart Given elevated BNP around 500 and x-ray showing vascular congestion: Lasix 40 mg IV daily Patient also complaining of cough, possible flu-like symptoms: Azithromycin 500 mg p.o. daily Continue home medication Plavix 75 mg p.o. daily PUD prophylaxis with famotidine 20 mg p.o. b.i.d. Cardiology consultation DVT prophylaxis with Eliquis Goals of care discussed greater than 23 minutes full code status. Plan discussed with Dr. Davenport Plan discussed with: Patient, Other (RN) My Orders Orders - JUSTUS PORRAS RESIDENT Procedure Category Date Status Time Admit ADMIT 11/09/24 Transmitted 21:18 Nitroglycerin PHA 11/09/24 In Process Sublingual (Ntrostat 21:30 Morphine Sulfate PHA 11/09/24 In Process Injection 21:30 Oxygen By Nasal RT 11/09/24 Transmitted Cannula 21:18 Stat Ekg For Chest ASIM 11/09/24 In Process Pain 21:18 Notify Md Of Changes ASIM 11/09/24 In Process From Base 21:18 Hatch Boss For ASIM 11/09/24 In Process 24 Hours 21:18 Emergency Dysrhythmia ASIM 11/09/24 In Process Protocol 21:18 Rhythm Strips Once ASIM 11/09/24 In Process Every Shift 21:18 Apixaban (Eliquis) PHA 11/09/24 Logged 22:00 Metoprolol Xl PHA 11/09/24 Logged Succinate (Toprol Xl) 21:30 Metoprolol Xl PHA 11/10/24 Logged Succinate (Toprol Xl) 10:00 Echo With Contrast US 11/09/24 Logged 21:19 * Cardiology Consult CONS 11/09/24 Transmitted 21:19 Drug Screen LAB 11/09/24 Logged 21:19 Covid19 Antigen [facility] LAB 11/09/24 Logged Rapid Influenza A&B LAB 11/09/24 Logged 21:19 Furosemide Injection PHA 11/10/24 Logged (Lasix Injection) 10:00 Azithromycin Tablet PHA 11/09/24 Logged (Zithromax Tablet) 21:30 Azithromycin Tablet PHA 11/10/24 Logged (Zithromax Tablet) 10:00 Date of Service: Nov 09, 2024 Billing Provider: EKATERINA DAVENPORT MD Common Visit Codes: 36867-[id number] INP/OBS CARE (HIGH) Secondary Visit Codes: [id number] CARE PLAN 30 MINUTES JUSTUS PORRAS RESIDENT Nov 09, 2024 21:28 EKATERINA DAVENPORT MD Nov 10, 2024 17:49
[2024-11-09] MEDS ORDERED: MORPHINE SULFATE INJ 2 MG/ml SYRG IV PRN (21:30)
[2024-11-09] MEDS ORDERED: NITROGLYCERIN 0.4 MG SL TAB SL PRN (21:30)
[2024-11-09 22:00] VITALS: PULSE 125; RESP 25; O2SAT 95
[2024-11-09] MEDS: APIXABAN 5 MG TAB PO SCH (23:10)
[2024-11-09] MEDS: FAMOTIDINE 20 MG TAB PO SCH (23:10)
[2024-11-09] MEDS: AZITHROMYCIN 250 MG TAB PO ONE (23:10)
[2024-11-09] MEDS: CLOPIDOGREL BISULFATE 75 MG TAB PO ONE (23:10)
[2024-11-09] MEDS: FUROSEMIDE 40 MG/4 ML VIAL IV ONE (23:15)
[2024-11-09] MEDS: METOPROLOL SUCCINATE XL 50 MG TAB PO ONE (23:15)
[2024-11-09 23:49] LABS: Amphetamine Screen, Urine Neg (NEGATIVE); Barbiturate Scree,Urine Neg (NEGATIVE); Benzodiazephine Screen, Urine Neg (NEGATIVE); Cannabinoid Screen, Urine Neg (NEGATIVE); Cocaine Screen, Urine Neg (NEGATIVE); Opiate Scree,Urine Neg (NEGATIVE); Phencyclidine Screen, Urine Neg (NEGATIVE)
[2024-11-10] VITALS (9 sets, daily range): BP systolic 109–136; BP diastolic 76–115; PULSE 89–142; RESP 18–26; O2SAT 95–99
[2024-11-10 00:05] LABS: Urine Bacteria FEW /hpf (None Seen); Urine Blood Negative /uL (Negative); Urine Clarity Clear (Clear); Urine Color Yellow (Yellow); Urine Mucus FEW (None Seen); Urine Protein, UAD TRACE (Negative); Urine Specific Gravity 1.027 (1.001-1.035); Urine Squamous Epithelial Cell FEW /hpf (<5); Urine Urobilinogen Normal (Negative); Urine WBC 1 /hpf (0 - 3); Urine pH 5.5 (5.0-9.0)
[2024-11-10 01:36] LABS: COVID19 ANTIGEN SOFIA FIA NEGATIVE (NEGATIVE); Rapid Influenza A Negative (Negative); Rapid Influenza B Negative (Negative)
--- NOTE | 2024-11-10 09:34 | ECG ---
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
[2024-11-10] MEDS: CLOPIDOGREL BISULFATE 75 MG TAB PO SCH (09:41)
[2024-11-10] MEDS: AZITHROMYCIN 250 MG TAB PO SCH (09:41)
[2024-11-10] MEDS: METOPROLOL SUCCINATE XL 50 MG TAB PO SCH (09:41)
[2024-11-10] MEDS: FUROSEMIDE 40 MG/4 ML VIAL IV SCH (09:42)
--- NOTE | 2024-11-10 11:05 | DVHINCON2 ---
Date Seen: Nov 10, 2024 Referring Physician MD Nery resident Reason for Consultation Afib RVR History of Present Illness This 63-year-old male patient who presents to the emergency room with chief complaint of shortness of breath. The patient reports waking up at approximately 4:00 a.m. and feeling short of breath. He denies any chest pain. He comes to the emergency room for further evaluation. Initial twelve lead electrocardiogram reveals atrial fibrillation with nonspecific ST segment changes to anterior leads and prolonged QTc interval. The patient was given diltiazem 10 mg IV x1 by ER. At the time of assessment, the patient remains in atrial fibrillation with uncontrolled rate between 120-140's. Initial troponin level of 29ng/L. Significant past medical history includes atrial fibrillation (on Eliquis), hypertension, dyslipidemia, type 2 diabetes mellitus, CVA (on Plavix), peptic ulcer disease, benign prostatic hyperplasia, obstructive sleep apnea with CPAP use at home. The patient denies following up with a specialist icu in the outpatient setting. Past Medical History Past medical history reviewed. No other significant than mentioned above. Past Surgical History Cauterization of peptic ulcer Family History: Family history: Hypertension Prostate carcinoma G8 FATHER Family History Family history reviewed. Social History Denies the use of tobacco, alcohol or illicit drugs. Allergies: Coded Allergies: NO KNOWN ALLERGIES (Unverified , 08/11/15) Home Meds Active Scripts Metronidazole (Flagyl) 500 Mg Tab, 1 TAB PO TID, #21 TAB Prov:MARLENI RUIZ MD 08/10/23 Ciprofloxacin Hcl (Cipro) 500 Mg Tab, 1 TAB PO BID, #14 TAB Prov:MARLENI RUIZ MD 08/10/23 Metoprolol Tartrate (Lopressor) 25 Mg Tb, 25 MG PO BID for 30 Days, #60 TAB 5 Refills Prov:MARLENI RUIZ MD 08/10/23 Apixaban Base (ELIQUIS) 5 Mg Tab, 5 MG PO BID for 30 Days, #60 TAB 5 Refills Prov:MARLENI RUIZ MD 08/10/23 Olopatadine HCl (Olopatadine Hydrochloride) 0.2 % Ida, 0.2 % OP DAILY for 14 Days, #1 DROP Prov:MANDY VOGEL MD 07/29/23 Reported Medications Ferrous Sulfate (FERROUS SULFATE) 324 Mg Tab, 2 TAB PO DAILY 08/06/23 Tamsulosin Hcl (Tamsulosin Hcl) 0.4 Mg Cap, 1 CAP PO DAILY 03/29/23 Omeprazole (Omeprazole Dr) 20 Mg Cap, 1 CAP PO DAILY 03/29/23 Metformin Hydrochloride (Metformin Hcl) 500 Mg Tab, 1 TAB PO DAILY 03/29/23 Terbinafine Hcl (Terbinafine Hcl) 250 Mg Tab, 250 MG PO DAILY, TAB 08/11/15 Enalapril Maleate (Enalapril Maleate) 2.5 Mg Tab, 20 MG PO DAILY, MG 08/11/15 Home Meds Home medications reviewed. Current Medications Current Medications Medications (Trade) Dose Ordered Sig/Christian Route PRN Reason Start Time Stop Time Status Last Admin Nitroglycerin (Ntrostat Sublingual) 0.4 mg Q5MINP PRN SL FOR CHEST PAIN 11/09/24 21:30 Morphine Sulfate 2 mg Q30M PRN IV FOR CHEST PAIN 11/09/24 21:30 Apixaban (Eliquis) 5 mg BID PO 11/09/24 22:00 11/10/24 09:40 Metoprolol Succinate (Toprol Xl) 25 mg DAILY PO 11/10/24 10:00 11/10/24 09:41 Furosemide (Lasix Injection) 40 mg DAILY IV 11/10/24 10:00 11/10/24 09:42 Azithromycin (Zithromax Tablet) 500 mg DAILY PO 11/10/24 10:00 11/10/24 09:41 Famotidine (Pepcid Tablet) 20 mg Q12HR PO 11/09/24 22:00 11/10/24 09:40 Clopidogrel Bisulfate (Plavix) 75 mg DAILY PO 11/10/24 10:00 11/10/24 09:41 Review of Systems Constitutional: No symptom reported Ears, Nose, & Throat: No symptom reported Eyes: No symptom reported Neurological: No symptoms reported Pulmonary/Respiratory: Shortness of breath Cardiovascular: No symptom reported Gastrointestinal: No symptom reported Genitourinary: No symptom reported Musculoskeletal: No symptom reported Skin: No symptom reported Psychiatric: No symptom reported Endocrine: No symptom reported Hematologic/Lymphatic: No symptom reported Vital Signs Vital Signs Date Time Temp Pulse Resp B/P (MAP) Pulse Ox O2 Delivery O2 Flow Rate FiO2 11/10/24 09:42 126/97 11/10/24 09:41 141 11/10/24 08:04 99 Room Air 0.0 11/10/24 07:00 19 11/10/24 06:50 30 11/09/24 20:29 98.0 98.0 Physical Exam General Appearance: Cooperative. Well-developed. Well-nourished. No acute distress. Pulmonary/Respiratory: Clear, bilateral breaths sounds. Cardiovascular/Chest: Irregular rate and rhythm. No murmurs, no JVD. Peripheral Pulses: 2+ Radial (R). 2+ Radial (L). 2+ Pedal (R). 2+ Pedal (L) Abdominal Exam: Normal bowel sounds. Ankle Exam: Negative ankle edema Lower extremities: Negative lower extremity edema Neuro/Mental Status: A/OX4, coherent. Thoughts/Psych: Normal thought pattern. Appropriate mood and affect. Good judgment and insight. Appearance: No acute distress. Skin Exam: Normal inspection. Normal color. Warm and dry. Labs/Diagnostic Data Labs Test 11/10/24 10:33 11/10/24 00:45 11/09/24 23:15 11/09/24 19:42 Range/Units Influenza Type A Antigen Negative Negative Influenza Type B Antigen Negative Negative SARS-CoV-2 Antigen (Rapid) Negative NEGATIVE Urine Color Yellow Yellow Urine Clarity Clear Clear Urine pH 5.5 5.0-9.0 Urine Specific [place] 1.027 1.001-1.035 Urine Protein Trace H Negative Urine Ketones Negative Negative Urine Blood Negative Negative /uL Urine Nitrite Negative Negative Urine Bilirubin Negative Negative Urine Urobilinogen Normal Negative mg/dL Urine Leukocyte Esterase Negative Negative /uL Urine RBC 4 0 - 3 /hpf Urine WBC 1 0 - 3 /hpf Urine Squamous Epithelial Cells Few <5 /hpf Urine Bacteria Few H None Seen /hpf Urine Mucus Few None Seen Urine Glucose Normal Normal mg/dL Urine Opiates Screen Neg NEGATIVE Urine Fentanyl Screen Neg NEGATIVE Urine Barbiturates Screen Neg NEGATIVE Urine Phencyclidine Screen Neg NEGATIVE Urine Amphetamines Screen Neg NEGATIVE Urine Benzodiazepines Screen Neg NEGATIVE Urine Cocaine Screen Neg NEGATIVE Urine Cannabinoids Screen Neg NEGATIVE Troponin I High Sensitivity 28 </=54 ng/L Test 11/09/24 18:50 Range/Units White Blood Count 5.8 4.4-10.8 10^3/uL Red Blood Count 4.62 4.5-5.90 10^6/uL Hemoglobin 15.2 13.5-17.5 g/dL Hematocrit 44.3 41.0-53.0 % Mean Corpuscular Volume 96.0 80.0-100.0 fL Mean Corpuscular Hemoglobin 33.0 H 28.0-32.0 pg Mean Corpuscular Hemoglobin Concent 34.4 32.0-36.0 g/dL Red Cell Distribution Width 12.8 11.8-14.3 % Platelet Count 240 140-450 10^3/uL Mean Platelet Volume 7.5 6.9-10.8 fL Neutrophils (%) (Auto) 54.0 37.0-80.0 % Lymphocytes (%) (Auto) 35.4 10.0-50.0 % Monocytes (%) (Auto) 5.6 0.0-12.0 % Eosinophils (%) (Auto) 4.2 0.0-7.0 % Basophils (%) (Auto) 0.8 0.0-2.0 % Neutrophils # (Auto) 3.1 1.6-8.6 10 ^3/uL Lymphocytes # (Auto) 2.1 0.4-5.4 10 ^3/uL Monocytes # (Auto) 0.3 0-1.3 10 ^3/uL Eosinophils # (Auto) 0.2 0-0.8 10 ^3/uL Basophils # (Auto) 0 0-0.2 10 ^3/uL Nucleated Red Blood Cells 0.1 % Prothrombin Time 11.9 H 9.3-11.8 sec Prothrombin Time INR 1.13 0.9-1.15 Activated Partial Thromboplast Time 26.7 24.5-34.5 SEC Sodium Level 141 136-145 mmol/L Potassium Level 4.1 3.5-5.1 mmol/L Chloride Level 109 H 98-107 mmol/L Carbon Dioxide Level 23 20-31 mmol/L Anion Gap 9 5-15 Blood Urea Nitrogen 20 9-23 mg/dL Creatinine 1.19 0.700-1.30 mg/dL Glomerular Filtration Rate Calc 69 >90 mL/min BUN/Creatinine Ratio 16.8 10.0-20.0 Serum Glucose 134 H 74-106 mg/dL Calcium Level 9.7 8.7-10.4 mg/dL Magnesium Level 2.3 1.6-2.6 mg/dL Total Bilirubin 1.0 0.2-1.0 mg/dL Aspartate Amino Transferase (AST) 59 H 13-40 U/L Alanine Aminotransferase (ALT) 90 H 7-40 U/L Alkaline Phosphatase 71 46-116 U/L B-Type Natriuretic Peptide 508.01 0-100 pg/mL Total Protein 6.7 5.7-8.2 g/dL Albumin 4.4 3.2-4.8 g/dL Assessment Atrial fibrillation with rapid ventricular response (on Eliquis) Rule out structural heart disease Hypertension Dyslipidemia Type 2 diabetes mellitus History of CVA (on Plavix) History of peptic ulcer disease BPH Obstructive sleep apnea with CPAP use at night Plan/Recommendation We will continue with the following plan/recommendations (Dr. Rogers): * Echocardiogram to evaluate cardiac function * TCE3CD4 VASc score: 3 points, HAS-BLED score: 2 points * Rate control, Cardizem drip * Up titrate beta-nadia * Continue home dose Eliquis * Lipid-lowering agent * Monitor and replete electrolytes as needed, keep potassium greater than four and magnesium greater than two * Cardiac surveillance Patient seen and examined at bedside with . Thank you for allowing us to care for this patient. Please call with any questions or concerns. Critical care time spent: 40 minutes This medical document was created using an electronic medical record system with voice recognition software and computerized dictation system. Although this document has been carefully reviewed, there might still be some phonetic and typographical errors. Occasional wrong-word or ``sound-alike substitutions may have occurred due to the inherent limitations of voice recognition software. These areas are purely typographical due to imperfections of the software programs and do not reflect any compromise in the patient's medical care. Please read the chart carefully and recognize, using context, where these substitutions have occurred. Plan discussed with: Patient NYHA Physical activity limitations: NA Date of Service: Nov 10, 2024 Billing Provider: ANDREW ROGERS MD Cardiology Common Codes: [id number] INP/OBS CARE (High) Cardiology Consultation Codes: [id number] CONSULT <45MIN STANLEY PÉREZ Nov 10, 2024 11:05
[2024-11-10 11:25] LABS: Cholesterol 175 mg/dL (< 200)
[2024-11-10] MEDS: METOPROLOL SUCCINATE XL 50 MG TAB PO ONE (11:29)
[2024-11-10] MEDS: dilTIAZem 25 MG/5 ML VIAL IV ONE (11:29)
[2024-11-10] MEDS: dilTIAZem 125mg/125ml BAG KIT 125 ML IV SCH (11:30)
[2024-11-10 11:41] LABS: HDL Cholesterol 32 mg/dL (40-59); LDL Cholesterol 127 mg/dL (< 100); Triglycerides 203 mg/dL (< 150)
[2024-11-10 12:20] LABS: Free T3 4.37 pg/mL (2.3-4.2)
[2024-11-10 12:21] LABS: Free T4 (Free Thyroxine) 1.28 ng/dL (0.89-1.76)
--- NOTE | 2024-11-10 15:05 | DVHPNRES ---
Progress Note Date Seen: Nov 10, 2024 Resident Creating Document: THAIS REYNOSO RESIDENT Medical Necessity Reason Pt with a Central, PICC or Fol: No Subjective Review of Systems Patient is a 63-year-old male with past medical history of atrial fibrillation, hypertension, obstructive sleep apnea, prediabetes, diverticulitis, peptic ulcer disease, benign prostatic hyperplasia, who came in due to shortness of breath. According to the patient, he has been experiencing intermittent shortness of breath where he feels like he can not catch his breath, also notes counting to get air. He notes he had 2-3 episodes today which were brief and lasted a few seconds, however, he notes yesterday he had an episode of shortness of breaths/dyspnea where he felt like he was "starving for oxygen" that lasted approximately 2 minutes which prompted this visit to the hospital. At the time of seeing the patient, he had similar episode of dyspnea where he was noted to have a brief nonsustained V-tach for 3 beats. Patient is also noted to have a prolonged QTC, Cardiology on board. Past surgical history: Cauterization for peptic ulcer disease Home medications: Apixaban, enalapril, metformin, metoprolol, omeprazole, tamsulosin Past Hospitalization: 08/10/2023 for melena, GI bleed was ruled out Social & Personal history: Denies using alcohol, cigarettes, drugs. Allergies: Denies Patient seen and examined at bedside. Patient is alert and oriented to time, place person and responding to all questions. Eyes: No Pain, No Vision change, No Conjunctivae inflammation, No Eyelid inflammation, No Other, No Redness ENT: No Ear pain, No Ear discharge, No Nose pain, rhinorrhea, No Mouth pain, No Mouth swelling, No Throat pain, No Throat swelling, No Other Cardiovascular: No Chest Pain, No Palpitations, No Orthopnea, Dyspnea, No Edema, No Lt Headedness, No Other Respiratory: Dry cough, Shortness of breath, No Wheezing, No Hemoptysis, No Pleuritic Pain, No Sputum, No Other Gastrointestinal: No Nausea, No Vomiting, No Abdominal Pain, No Diarrhea, No Constipation, No Melena, No Hematochezia, No Other Genitourinary: No Dysuria, No Frequency, No Incontinence, No Hematuria, No Retention, No Other Musculoskeletal: No other, No neck pain, No shoulder pain, No arm pain, No back pain, No hand pain, No leg pain, No foot pain Skin: No Rash, No Lesions, No Jaundice, No Bruising, No Other Objective vital signs Vital Sign Date Time Temp Pulse Resp B/P (MAP) Pulse Ox O2 Delivery O2 Flow Rate FiO2 11/10/24 11:30 127/88 11/10/24 11:29 138 11/10/24 08:04 99 Room Air 0.0 11/10/24 07:00 19 11/10/24 06:50 30 11/09/24 20:29 98.0 98.0 medications Current Medications Medications Dose Ordered Sig/Christian Route Start Time Stop Time Status Last Admin Dose Admin Nitroglycerin 0.4 mg Q5MINP PRN SL 11/09/24 21:30 Morphine Sulfate 2 mg Q30M PRN IV 11/09/24 21:30 Apixaban 5 mg BID PO 11/09/24 22:00 11/10/24 09:40 5 MG Furosemide 40 mg DAILY IV 11/10/24 10:00 11/10/24 09:42 40 MG Famotidine 20 mg Q12HR PO 11/09/24 22:00 11/10/24 09:40 20 MG Clopidogrel Bisulfate 75 mg DAILY PO 11/10/24 10:00 11/10/24 09:41 75 MG Diltiazem HCl 125 ml @ 5 mls/hr Q24H IV 11/10/24 11:30 11/10/24 11:30 5 MLS/HR Metoprolol Succinate 50 mg DAILY PO 11/11/24 10:00 Atorvastatin Calcium 40 mg HS PO 11/10/24 22:00 Doxycycline Monohydrate 100 mg Q12HR PO 11/10/24 22:00 UNV Examination General Appearance: Cooperative. Well developed. Well nourished. NAD Head Exam: Normal inspection Neck Exam: Normal inspection. Non-tender. Normal alignment Pulmonary/Respiratory: Chest non-tender. Clear bilateral breath sounds, no crackles, no wheezing. Cardiovascular/Chest: Tachycardia, irregular rhythm. No murmurs. No JVD. Peripheral Pulses: 2+ Radial (R). 2+ Radial (L). 2+ Pedal (R). 2+ Pedal (L) Abdominal Exam: Normal bowel sounds. Soft. normal abdomen, no visible veins, Nontender. No hepatospenomegaly. No masses Ankle Exam: Negative ankle edema Lower extremities: Negative lower extremity edema Neuro/Mental Status: A&O x4. Coherent. Thoughts/Psych: Normal thought pattern. Appropriate mood and affect. Good judgement and insight Skin Exam: Normal inspection. Normal color. Warm. Dry laboratory and microbiology Laboratory Tests 11/09/24 18:50 Test 11/09/24 18:50 Range/Units Serum Glucose 134 H 74-106 mg/dL Labs and/or images reviewed: Labs reviewed by me, Image(s) reviewed by me Problem List/Assessment/Plan Problem List/Assessment/Plan Atrial fibrillation with RVR Brief nonsustained V-tach 3 beats - IV diltiazem 5 milligram/hour drip - IV magnesium rider 1 g - Eliquis 5 mg b.i.d. - metoprolol succinate 50 mg daily - cardiology on board - IV NS 250 cc bolus once Questionable community-acquired pneumonia, Gram-positive versus Gram-negative - doxycycline 100 mg p.o. b.i.d. Possible acute on chronic systolic versus diastolic heart failure - CXR: Cardiomegaly with mild central vascular congestion - BNP 500 - ordered echocardiogram - IV Lasix 40 mg daily Obstructive sleep apnea, on CPAP - CPAP at night Type 2 diabetes, Hb A1c 6.8 Hypertension Coronary artery disease - atorvastatin, clopidogrel History of peptic ulcer disease - Pepcid 20 mg p.o. b.i.d. Mild transaminitis -monitor Goals of care: Full code, discussed for >16 minutes on 11/10/2024 Plan discussed with patient Plan discussed with Dr. Mansfield Plan discussed with: Patient, Other (RN) My Orders My Orders Orders - THAIS REYNOSO RESIDENT Procedure Category Date Status Time Magnesium Sulfate PHA 11/10/24 Logged 1gm/100ml 14:15 Sodium Chloride 0.9% PHA 11/10/24 Logged 14:15 Echo 2d Mode Cardiac US 11/10/24 Logged DOP 14:05 Doxycycline Tablet PHA 11/10/24 Logged (Vibramycin Tablet) 22:00 Date of Service: Nov 10, 2024 Billing Provider: VJ MANSFIELD MD Common Visit Codes: [id number] INP/OBS CARE(HIGH) THAIS REYNOSO Nov 10, 2024 15:05 VJ MANSFIELD MD Nov 15, 2024 21:52
[2024-11-10] MEDS: MAGNESIUM SULFATE 1GM/100ML 100 ML IV ONE (15:31)
[2024-11-10] MEDS: SODIUM CHLORIDE 0.9% 250 ML IV ONE (15:31)
[2024-11-10] MEDS ORDERED: dilTIAZem 125mg/125ml BAG KIT 125 ML IV SCH (16:30)
[2024-11-10] MEDS: DOXYCYCLINE 100 MG TAB/CAP PO SCH (21:44)
[2024-11-10] MEDS: ATORVASTATIN 20 MG TAB PO SCH (21:44)
[2024-11-11] VITALS (15 sets, daily range): BP systolic 97–134; BP diastolic 65–102; PULSE 54–129; RESP 11–25; TEMP 97.6–98.1; O2SAT 93–100
[2024-11-11 04:43] LABS: Basophils # (auto) 0 10 ^3/uL (0-0.2); Basophils % (auto) 0.5 % (0.0-2.0); Eosinophils # (auto) 0.3 10 ^3/uL (0-0.8); Eosinophils % (auto) 6.6 % (0.0-7.0); Hematocrit 41.7 % (41.0-53.0); Hemoglobin 14.6 g/dL (13.5-17.5); Lymphocytes # (auto) 2.2 10 ^3/uL (0.4-5.4); Lymphocytes % (auto) 44.8 % (10.0-50.0); Mean Corpuscular Hemoglobin 33.1 pg (28.0-32.0); Mean Corpuscular Hgb Conc. 34.9 g/dL (32.0-36.0); Mean Corpuscular Volume 94.8 fL (80.0-100.0); Monocytes # (auto) 0.5 10 ^3/uL (0-1.3); Monocytes % (auto) 9.7 % (0.0-12.0); Neutrophils # (auto) 1.9 10 ^3/uL (1.6-8.6); Neutrophils % (auto) 38.4 % (37.0-80.0); Nucleated Red Blood Cells % 0.2 %; Platelet Count (auto) 226 10^3/uL (140-450); Red Cell Distribution Width 12.7 % (11.8-14.3); White Blood Cell 4.9 10^3/uL (4.4-10.8)
[2024-11-11 04:51] LABS: Chloride 105 mmol/L (98-107); Potassium 3.9 mmol/L (3.5-5.1); Sodium 139 mmol/L (136-145)
[2024-11-11 04:52] LABS: Anion Gap 9 (5-15); Carbon Dioxide 25 mmol/L (20-31)
[2024-11-11 04:53] LABS: Calcium 9.6 mg/dL (8.7-10.4)
[2024-11-11 04:58] LABS: BUN/Creatinine Ratio 17.8 (10.0-20.0); Blood Urea Nitrogen 23 mg/dL (9-23)
[2024-11-11 05:01] LABS: Glucose 116 mg/dL (74-106)
--- NOTE | 2024-11-11 08:19 | DVHSR ---
APPROVED REPORT EXAM: Two-dimensional and M-mode echocardiogram with Doppler and color Doppler. Blood Pressure: 107/83 mmHg RISK FACTORS Height: 5'5, Weight: 180 DIMENSIONS LVDd4.9 (3.8-5.7cm)LA (2D)3.7 (1.9-4.0cm)Aortic Root3.4 (2.0-3.7cm) LVDs4.6 (2.5-4.0cm)LA (MM) (1.9-4.0cm)Aortic Cusp Exc1.3 (1.5-2.0cm) EF (%) 25.0 (55-70%)Rt. Atrium3.5 (1.9-4.0cm)Asc. Aorta3.4 cm IVSd1.0 (0.7-1.1cm)RV (D) (1.8-2.4cm) PWd1.0 (0.7-1.1cm) Mitral Valve MitralMitral Stenosis E wave0.97m/sMV Mean GR.2mmHg A wavem/sMV Peak GR.81mmHg E/A ratio0.02D MVAcm2 Aortic Valve Aortic ValveAortic Stenosis V10.75m/Susan Mean GR.2mmHg V20.94m/Susan Peak GR.4mmHg LVOT Diameter2.3 (1.8-2.4cm)Doppler AVA3.31cm2 Pulmonic Valve V20.66m/s Tricuspid Valve TR Velocity2.19m/s [id number] LEFT VENTRICLE Normal left ventricular size. Wall thickness is normal. Ejection fraction is severely decreased and is estimated at 20-25% based on visual estimate. There is severe global hypokinesis. Diastolic fun ction is indeterminate as patient is in atrial fibrillation at the time of the study. RIGHT VENTRICLE The right ventricle is of normal size and systolic function. ATRIA The left atrium is severely dilated in size. Right atrium is of normal size. MITRAL VALVE Normal structure and function. There is mild central mitral regurgitation. PULMONIC VALVE Likely normal. TRICUSPID VALVE Normal structure and function. There is mild tricuspid regurgitation. PA systolic pressure is estim ated at 28 mm Hg. AORTIC VALVE Normal structure and function. GREAT VESSELS The aortic root is of normal size. Proximal ascending aorta is of normal size. PERICARDIAL EFFUSION There is no pericardial effusion. IVC is dilated in size. Conclusion Normal left ventricular size with severely decreased systolic function. Ejection fraction is estimated at 20-25%. Diastolic function is indeterminate as patient is in atrial fibrillation at the time of the study. Normal right ventricular size and systolic function. No hemodynamically significant valvular disease. PA systolic pressure is estimated at 28 mm Hg.
--- NOTE | 2024-11-11 09:20 | DVHPN2 ---
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 Objective vital signs Vital Sign Date Time Temp Pulse Resp B/P (MAP) Pulse Ox O2 Delivery O2 Flow Rate FiO2 11/11/24 08:00 99 Nasal Cannula* 2 28 11/11/24 08:00 97.7 112 14 108/81 (90) 97.7 Total Intake and Output 11/10/24 11/10/24 11/11/24 15:00 23:00 07:00 Output Total 750 ml Balance -750 ml medications Current Medications Medications Dose Ordered Sig/Christian Route Start Time Stop Time Status Last Admin Dose Admin Nitroglycerin 0.4 mg Q5MINP PRN SL 11/09/24 21:30 Morphine Sulfate 2 mg Q30M PRN IV 11/09/24 21:30 Apixaban 5 mg BID PO 11/09/24 22:00 11/10/24 21:44 5 MG Furosemide 40 mg DAILY IV 11/10/24 10:00 11/10/24 09:42 40 MG Famotidine 20 mg Q12HR PO 11/09/24 22:00 11/10/24 21:44 20 MG Clopidogrel Bisulfate 75 mg DAILY PO 11/10/24 10:00 11/10/24 09:41 75 MG Metoprolol Succinate 50 mg DAILY PO 11/11/24 10:00 Atorvastatin Calcium 40 mg HS PO 11/10/24 22:00 11/10/24 21:44 40 MG Doxycycline Monohydrate 100 mg Q12HR PO 11/10/24 22:00 11/10/24 21:44 100 MG Examination: GENERAL:Normal, LUNGS:Normal, CVS:Normal, NEURO:Normal laboratory and microbiology Laboratory Tests 11/11/24 04:00 Test 11/11/24 04:00 Range/Units Serum Glucose 116 H 74-106 mg/dL Problem List/Assessment/Plan Problem List/Assessment/Plan Atrial fibrillation with rapid ventricular response (on Eliquis) Acute on chronic HFrEF, NYHA class III, newly diagnosed Nonischemic cardiomyopathy Hypertension Dyslipidemia Type 2 diabetes mellitus History of CVA (on Plavix) History of peptic ulcer disease BPH Obstructive sleep apnea with CPAP use at night Plan/Recommendation We will continue with the following plan/recommendations (Dr. Rogers): * Echocardiogram reveals EF 20-25% * Initiate guideline directed medical therapy for CHF as tolerated * Add spironolactone with stable potassium * [id number] VASc score: 3 points, HAS-BLED score: 2 points * Add digoxin for rate control * Up titrate beta-nadia * Continue home dose Eliquis (resume 11/12/24) * Lipid-lowering agent * Monitor and replete electrolytes as needed, keep potassium greater than four and magnesium greater than two * Cardiac surveillance Patient seen and examined at bedside with . The patient was found to have an EF of 20-25%. Given this information, the patient was offered a coronary angiogram with left heart catheterization. The patient agreed and was subsequently taken to the can labeler where the patient underwent a coronary angiogram with left heart catheterization which found mild to moderate multivessel coronary artery disease. At this time we will recommend for medical therapy and optimization of GDMT as tolerated by patient. Thank you for allowing us to care for this patient. Please call with any questions or concerns. This medical document was created using an electronic medical record system with voice recognition software and computerized dictation system. Although this document has been carefully reviewed, there might still be some phonetic and typographical errors. Occasional wrong-word or ``sound-alike substitutions may have occurred due to the inherent limitations of voice recognition software. These areas are purely typographical due to imperfections of the software programs and do not reflect any compromise in the patient's medical care. Please read the chart carefully and recognize, using context, where these substitutions have occurred. Plan discussed with: Patient Date of Service: Nov 11, 2024 Billing Provider: ANDREW ROGERS MD Common Visit Codes: [id number] INP/OBS CARE(HIGH) STANLEY PÉREZ POWER HAIR CLIPPER Nov 11, 2024 09:20
[2024-11-11] MEDS: METOPROLOL SUCCINATE XL 50 MG TAB PO SCH (10:16)
[2024-11-11] MEDS: DIGOXIN (250MCG/ML) 2 ML AMPULE IV ONE (10:17)
--- NOTE | 2024-11-11 11:46 | DVHPNRES ---
Progress Note Date Seen: Nov 11, 2024 Resident Creating Document: THAIS REYNOSO RESIDENT Medical Necessity Reason Pt with a Central, PICC or Fol: No Subjective Review of Systems Patient is a 63-year-old male with past medical history of atrial fibrillation, hypertension, obstructive sleep apnea, prediabetes, diverticulitis, peptic ulcer disease, benign prostatic hyperplasia, who came in due to shortness of breath. According to the patient, he has been experiencing intermittent shortness of breath where he feels like he can not catch his breath, also notes counting to get air. He notes he had 2-3 episodes today which were brief and lasted a few seconds, however, he notes yesterday he had an episode of shortness of breaths/dyspnea where he felt like he was "starving for oxygen" that lasted approximately 2 minutes which prompted this visit to the hospital. At the time of seeing the patient, he had similar episode of dyspnea where he was noted to have a brief nonsustained V-tach for 3 beats. Patient is also noted to have a prolonged QTC, Cardiology on board. Past surgical history: Cauterization for peptic ulcer disease Home medications: Apixaban, enalapril, metformin, metoprolol, omeprazole, tamsulosin Past Hospitalization: 08/10/2023 for melena, GI bleed was ruled out Social & Personal history: Denies using alcohol, cigarettes, drugs. Allergies: Denies Patient seen and examined at bedside. Patient is alert and oriented to time, place person and responding to all questions. Objective vital signs Vital Sign Date Time Temp Pulse Resp B/P (MAP) Pulse Ox O2 Delivery O2 Flow Rate FiO2 11/11/24 10:17 143 11/11/24 10:16 119/98 11/11/24 10:00 17 99 11/11/24 08:00 Nasal Cannula* 2 28 11/11/24 08:00 97.7 97.7 Total Intake and Output 11/10/24 11/10/24 11/11/24 15:00 23:00 07:00 Output Total 750 ml Balance -750 ml medications Current Medications Medications Dose Ordered Sig/Christian Route Start Time Stop Time Status Last Admin Dose Admin Nitroglycerin 0.4 mg Q5MINP PRN SL 11/09/24 21:30 Morphine Sulfate 2 mg Q30M PRN IV 11/09/24 21:30 Apixaban 5 mg BID PO 11/09/24 22:00 11/10/24 21:44 5 MG Furosemide 40 mg DAILY IV 11/10/24 10:00 11/11/24 10:16 40 MG Famotidine 20 mg Q12HR PO 11/09/24 22:00 11/11/24 10:16 20 MG Clopidogrel Bisulfate 75 mg DAILY PO 11/10/24 10:00 11/10/24 09:41 75 MG Metoprolol Succinate 50 mg DAILY PO 11/11/24 10:00 11/11/24 10:16 50 MG Atorvastatin Calcium 40 mg HS PO 11/10/24 22:00 11/10/24 21:44 40 MG Doxycycline Monohydrate 100 mg Q12HR PO 11/10/24 22:00 11/11/24 10:16 100 MG Examination General Appearance: Cooperative. Well developed. Well nourished. NAD Head Exam: Normal inspection Neck Exam: Normal inspection. Non-tender. Normal alignment Pulmonary/Respiratory: Chest non-tender. Clear bilateral breath sounds, no crackles, no wheezing. Cardiovascular/Chest: Tachycardia, irregular rhythm. No murmurs. No JVD. Peripheral Pulses: 2+ Radial (R). 2+ Radial (L). 2+ Pedal (R). 2+ Pedal (L) Abdominal Exam: Normal bowel sounds. Soft. normal abdomen, no visible veins, Nontender. No hepatospenomegaly. No masses Ankle Exam: Negative ankle edema Lower extremities: Negative lower extremity edema Neuro/Mental Status: A&O x4. Coherent. Thoughts/Psych: Normal thought pattern. Appropriate mood and affect. Good judgement and insight Skin Exam: Normal inspection. Normal color. Warm. Dry laboratory and microbiology Laboratory Tests 11/11/24 04:00 Test 11/11/24 04:00 Range/Units Serum Glucose 116 H 74-106 mg/dL Labs and/or images reviewed: Labs reviewed by me, Image(s) reviewed by me Problem List/Assessment/Plan Problem List/Assessment/Plan Atrial fibrillation with RVR Brief nonsustained V-tach 3 beats prolonged QTc - IV diltiazem 5 milligram/hour drip - IV magnesium rider 1 g - Eliquis 5 mg b.i.d. - metoprolol succinate 50 mg daily - cardiology on board; scheduled for left heart cath today - IV NS 250 cc bolus once Questionable community-acquired pneumonia, Gram-positive versus Gram-negative - doxycycline 100 mg p.o. b.i.d. Possible acute on chronic systolic versus diastolic heart failure - CXR: Cardiomegaly with mild central vascular congestion - BNP 500 - ordered echocardiogram - IV Lasix 40 mg daily Obstructive sleep apnea, on CPAP - CPAP at night Type 2 diabetes, Hb A1c 6.8 Hypertension Coronary artery disease - atorvastatin, clopidogrel History of peptic ulcer disease - Pepcid 20 mg p.o. b.i.d. Mild transaminitis -monitor Goals of care: Full code w cardioversion and intubation, however, palliative extubation if needed, discussed for >16 minutes on 11/10/2024 Plan discussed with patient Plan discussed with Dr. Mansfield Plan discussed with: Patient My Orders My Orders Orders - THAIS REYNOSO RESIDENT Procedure Category Date Status Time Echo 2d Mode Cardiac US 11/10/24 Resulted DOP 14:05 Doxycycline Tablet PHA 11/10/24 In Process (Vibramycin Tablet) 22:00 Bipap/Cpap For Sleep RT 11/10/24 Logged Apnea 14:50 Transfer Orders XFER 11/10/24 Transmitted 16:41 Date of Service: Nov 12, 2024 Billing Provider: VJ MANSFIELD MD Common Visit Codes: [id number] INP/OBS CARE(HIGH) THAIS REYNOSO RESIDENT Nov 11, 2024 11:46 VJ MANSFIELD MD Nov 15, 2024 21:53
[2024-11-11] MEDS: ANGIOMAX 250 MG VIAL IV ONE (12:20)
[2024-11-11] MEDS: HEPARIN SODIUM (PORCINE) 5000 UNITS/ML 1ML VIAL ONE (12:20)
[2024-11-11] MEDS: VERAPAMIL 2.5MG/ML INJ 2ML VIAL IV ONE (12:20)
[2024-11-11] MEDS: MIDAZOLAM HCL 2MG/2ML 2ml VIAL (1mg/ml) ONE (12:21)
[2024-11-11] MEDS: fentaNYL CITRATE 100 MCG/2 ML VL ONE (12:21)
[2024-11-11] MEDS: LIDOCAINE 2%HCL (LOCAL ANESTH.) INJ 20ML MDV ONE (12:21)
[2024-11-11] MEDS: SODIUM CHL 0.9% 0 ML ONE (12:21)
[2024-11-11] MEDS: IODIXANOL 320MG/ML 100ML BTL IV ONE (12:33)
[2024-11-11] MEDS: ONDANSETRON HCL 4 MG/2 ML VIAL ONE (13:13)
--- NOTE | 2024-11-11 13:23 | DVHOP2 ---
Operative Report - 2 Report Details Date: 11/11/24 Preop Diagnosis: Patient presented with shortness of breath. He was diagnosed with atrial fibrillation with rapid ventricular response and acute heart failure exacerbation. Echo showed severely decreased left ventricular systolic function with ejection fraction of 20%. Postop Diagnosis: 1. Normal left ventricular end-diastolic pressure. 2. Ectatic coronary vessels with mild to moderate disease and slow flow throughout. 3. No significant obstructive coronary artery disease. 4. Nonischemic cardiomyopathy. Surgeon: Andrew Rogers MD Anesthesiologist: Patient was deemed an adequate candidate for conscious sedation. Versed and fentanyl were given during the procedure. He was given 1 mg of Versed and25 mcg of fentanyl. I was available for continued [id number] monitoring throughout the procedure. Anesthesia: Local Consent: The patient was informed of the risks and benefits of the procedure. These include but are not limited to complications of anesthesia, postoperative infection, incomplete relief of symptoms, recurrence of symptoms, damage to blood vessels, nerves and tendons, deep venous thrombosis, pulmonary embolism and possible need for repeat surgery in the future. Complications: None Estimated Blood Loss: 10 cc Name of Procedure Performed 1. Left heart catheterization. 2. Selective coronary angiography. 3. Moderated sedation. Procedure Details Procedure Details: The patient was brought to the laboratory administrative director in a stable condition. Patient was found to have normal pulses in the right radial artery. The right wrist area was sterilized and draped in a sterile fashion. The skin was anesthetized using 1% lidocaine. Access in the right radial artery was obtained using a Seldinger approach. An 11 cm sheath was placed in the right radial artery. The left heart catheterization, left coronary angiography, and right coronary angiography were performed using a5 Czech tiger catheter. At the completion of the procedure hemostasis in radial artery was obtained using a TR band. Findings: Hemodynamics: Aortic pressure was 130/70 mm Hg, LVEDP was 9 mm Hg. There is no significant gradient on LV to aorta pullback. Coronary angiography: The left main coronary artery is a normal caliber trifurcating vessel. It is free of any significant disease. The left anterior descending artery is mildly ectatic vessel with mild diffuse disease. There is significant slow flow throughout the vessel. Diagonal branch is with no significant stenosis but with slow flow. Ramus intermedius branch is of normal size with mild disease. The left circumflex artery is a normal-caliber nondominant vessel. It has mild diffuse disease and mild ectasia. There is slow flow throughout the vessel. There is a large left posterolateral branch with no significant stenosis. The right coronary artery is a normal caliber and dominant vessel. There is moderate ectasia throughout the vessel with mild diffuse disease. Distal vessel has discrete 50% stenosis. RPDA and right posterolateral branches has mild disease. There is slow flow throughout the RCA. Impressions: 1. Normal left ventricular end-diastolic pressure. 2. Ectatic coronary vessels with slow flow throughout. 3. [id number] multivessel coronary artery disease. 4. Nonischemic cardiomyopathy. Plan: 1. Medical therapy for coronary artery disease. 2. Optimize medical therapy for cardiomyopathy. 3. Risk factors modifications. Condition Stable Disposition Still a Patient ANDREW ROGERS MD Nov 11, 2024 13:23
[2024-11-12] VITALS (11 sets, daily range): BP systolic 95–125; BP diastolic 70–95; PULSE 54–122; RESP 17–22; TEMP 97.4–98.1; O2SAT 95–100
[2024-11-12 08:16] LABS: Calcium 9.7 mg/dL (8.7-10.4); Chloride 105 mmol/L (98-107); Potassium 3.7 mmol/L (3.5-5.1); Sodium 140 mmol/L (136-145)
[2024-11-12 08:17] LABS: Anion Gap 8 (5-15); Carbon Dioxide 27 mmol/L (20-31)
[2024-11-12 08:23] LABS: BUN/Creatinine Ratio 16.5 (10.0-20.0); Blood Urea Nitrogen 21 mg/dL (9-23)
[2024-11-12 08:26] LABS: Glucose 122 mg/dL (74-106)
[2024-11-12 08:32] LABS: Basophils # (auto) 0 10 ^3/uL (0-0.2); Basophils % (auto) 0.3 % (0.0-2.0); Eosinophils # (auto) 0.3 10 ^3/uL (0-0.8); Eosinophils % (auto) 4.8 % (0.0-7.0); Hematocrit 42.7 % (41.0-53.0); Lymphocytes # (auto) 2.1 10 ^3/uL (0.4-5.4); Mean Corpuscular Hemoglobin 33.1 pg (28.0-32.0); Mean Corpuscular Hgb Conc. 35.1 g/dL (32.0-36.0); Mean Corpuscular Volume 94.3 fL (80.0-100.0); Monocytes # (auto) 0.5 10 ^3/uL (0-1.3); Monocytes % (auto) 10.4 % (0.0-12.0); Neutrophils # (auto) 2.3 10 ^3/uL (1.6-8.6); Neutrophils % (auto) 44.5 % (37.0-80.0); Nucleated Red Blood Cells % 0.1 %; Platelet Count (auto) 224 10^3/uL (140-450); Red Blood Cells 4.53 10^6/uL (4.5-5.90); Red Cell Distribution Width 12.6 % (11.8-14.3); White Blood Cell 5.2 10^3/uL (4.4-10.8)
[2024-11-12] MEDS: LISINOPRIL 5 MG TAB PO SCH (09:07)
[2024-11-12] MEDS: DIGOXIN 0.125 MG TAB PO SCH (09:08)
[2024-11-12] MEDS: EMPAGLIFLOZIN 10 MG TAB PO SCH (09:08)
--- NOTE | 2024-11-12 14:45 | DVHPN2 ---
Consult Progress Note Subjective Other Systems: Patient remains in atrial fibrillation with uncontrolled rate on monitor (fluctuating 110's-130's) Objective vital signs Vital Sign Date Time Temp Pulse Resp B/P (MAP) Pulse Ox O2 Delivery O2 Flow Rate FiO2 11/12/24 13:00 97.7 59 17 105/84 (91) 98 97.7 11/12/24 08:05 Room Air* 0 21 Total Intake and Output 11/11/24 11/11/24 11/12/24 15:00 23:00 07:00 Intake Total 350 ml Output Total 300 ml 600 ml Balance -300 ml -250 ml medications Current Medications Medications Dose Ordered Sig/Christian Route Start Time Stop Time Status Last Admin Dose Admin Nitroglycerin 0.4 mg Q5MINP PRN SL 11/09/24 21:30 Morphine Sulfate 2 mg Q30M PRN IV 11/09/24 21:30 Apixaban 5 mg BID PO 11/09/24 22:00 11/12/24 09:07 5 MG Furosemide 40 mg DAILY IV 11/10/24 10:00 11/12/24 09:09 40 MG Famotidine 20 mg Q12HR PO 11/09/24 22:00 11/12/24 09:08 20 MG Clopidogrel Bisulfate 75 mg DAILY PO 11/10/24 10:00 11/10/24 09:41 75 MG Metoprolol Succinate 50 mg DAILY PO 11/11/24 10:00 11/12/24 09:08 50 MG Atorvastatin Calcium 40 mg HS PO 11/10/24 22:00 11/11/24 21:39 40 MG Doxycycline Monohydrate 100 mg Q12HR PO 11/10/24 22:00 11/12/24 09:32 100 MG Empaglifozin 10 mg DAILY PO 11/12/24 10:00 11/12/24 09:08 10 MG Lisinopril 2.5 mg DAILY PO 11/12/24 10:00 11/12/24 09:07 2.5 MG Digoxin 0.125 mg DAILY PO 11/12/24 10:00 11/12/24 09:08 0.125 MG Spironolactone 25 mg DAILY PO 11/13/24 10:00 Examination: GENERAL:Normal, LUNGS:Normal, CVS:Normal, NEURO:Normal laboratory and microbiology Laboratory Tests 11/12/24 06:39 Test 11/12/24 06:39 Range/Units Serum Glucose 122 H 74-106 mg/dL Problem List/Assessment/Plan Problem List/Assessment/Plan Atrial fibrillation with rapid ventricular response (on Eliquis) Acute on chronic HFrEF, NYHA class III, newly diagnosed Nonischemic cardiomyopathy Hypertension Dyslipidemia Type 2 diabetes mellitus History of CVA (on Plavix) History of peptic ulcer disease BPH Obstructive sleep apnea with CPAP use at night Plan/Recommendation (Dr. Chand): * Echocardiogram reveals EF 20-25% * Continue guideline directed medical therapy for CHF as tolerated * [id number] VASc score: 3 points, HAS-BLED score: 2 points * Digoxin for rate control * Up titrate beta-nadia as tolerated * Continue home dose Eliquis * Lipid-lowering agent * Monitor and replete electrolytes as needed, keep potassium greater than four and magnesium greater than two * Cardiac surveillance * LifeVest The patient underwent a coronary angiogram with left heart catheterization with no catheter based intervention on 11/11/24. At this time, we will continue with medical management. The patient may qualify for a LifeVest. Plan discussed with the patient and his daughter at bedside. Both patient in his daughter are agreeable. We will order LifeVest. If no improvement in EF within 3-6 months on guideline directed medical therapy for CHF, the patient may qualify for ICD implantation. Thank you for allowing us to care for this patient. Please call with any questions or concerns. This medical document was created using an electronic medical record system with voice recognition software and computerized dictation system. Although this document has been carefully reviewed, there might still be some phonetic and typographical errors. Occasional wrong-word or ``sound-alike substitutions may have occurred due to the inherent limitations of voice recognition software. These areas are purely typographical due to imperfections of the software programs and do not reflect any compromise in the patient's medical care. Please read the chart carefully and recognize, using context, where these substitutions have occurred. Plan discussed with: Patient, Daughter Date of Service: Nov 12, 2024 Billing Provider: STANLEY PÉREZ Common Visit Codes: [id number] INP/OBS CARE(HIGH) STANLEY PÉREZ Nov 12, 2024 14:45
[2024-11-12] MEDS: SPIRONOLACTONE 25 MG TAB PO ONE (16:51)
--- NOTE | 2024-11-12 16:52 | DVHPNRES ---
Progress Note Date Seen: Nov 12, 2024 Resident Creating Document: THAIS REYNOSO RESIDENT Medical Necessity Reason Pt with a Central, PICC or Fol: No Subjective Review of Systems Patient is a 63-year-old male with past medical history of atrial fibrillation, hypertension, obstructive sleep apnea, prediabetes, diverticulitis, peptic ulcer disease, benign prostatic hyperplasia, who came in due to shortness of breath. According to the patient, he has been experiencing intermittent shortness of breath where he feels like he can not catch his breath, also notes counting to get air. He notes he had 2-3 episodes today which were brief and lasted a few seconds, however, he notes yesterday he had an episode of shortness of breaths/dyspnea where he felt like he was "starving for oxygen" that lasted approximately 2 minutes which prompted this visit to the hospital. At the time of seeing the patient, he had similar episode of dyspnea where he was noted to have a brief nonsustained V-tach for 3 beats. Patient is also noted to have a prolonged QTC, Cardiology on board. Past surgical history: Cauterization for peptic ulcer disease Home medications: Apixaban, enalapril, metformin, metoprolol, omeprazole, tamsulosin Past Hospitalization: 08/10/2023 for melena, GI bleed was ruled out Social & Personal history: Denies using alcohol, cigarettes, drugs. Allergies: Denies Patient seen and examined at bedside. Patient is alert and oriented to time, place person and responding to all questions. Objective vital signs Vital Sign Date Time Temp Pulse Resp B/P (MAP) Pulse Ox O2 Delivery O2 Flow Rate FiO2 11/12/24 15:07 59 17 105/84 98 11/12/24 13:00 97.7 97.7 11/12/24 08:05 Room Air* 0 21 Total Intake and Output 11/11/24 11/11/24 11/12/24 15:00 23:00 07:00 Intake Total 350 ml Output Total 300 ml 600 ml Balance -300 ml -250 ml medications Current Medications Medications Dose Ordered Sig/Christian Route Start Time Stop Time Status Last Admin Dose Admin Nitroglycerin 0.4 mg Q5MINP PRN SL 11/09/24 21:30 Morphine Sulfate 2 mg Q30M PRN IV 11/09/24 21:30 Apixaban 5 mg BID PO 11/09/24 22:00 11/12/24 09:07 5 MG Furosemide 40 mg DAILY IV 11/10/24 10:00 11/12/24 09:09 40 MG Famotidine 20 mg Q12HR PO 11/09/24 22:00 11/12/24 09:08 20 MG Clopidogrel Bisulfate 75 mg DAILY PO 11/10/24 10:00 11/10/24 09:41 75 MG Metoprolol Succinate 50 mg DAILY PO 11/11/24 10:00 11/12/24 09:08 50 MG Atorvastatin Calcium 40 mg HS PO 11/10/24 22:00 11/11/24 21:39 40 MG Doxycycline Monohydrate 100 mg Q12HR PO 11/10/24 22:00 11/12/24 09:32 100 MG Empaglifozin 10 mg DAILY PO 11/12/24 10:00 11/12/24 09:08 10 MG Lisinopril 2.5 mg DAILY PO 11/12/24 10:00 11/12/24 09:07 2.5 MG Digoxin 0.125 mg DAILY PO 11/12/24 10:00 11/12/24 09:08 0.125 MG Spironolactone 25 mg DAILY PO 11/13/24 10:00 Examination General Appearance: Cooperative. Well developed. Well nourished. NAD Head Exam: Normal inspection Neck Exam: Normal inspection. Non-tender. Normal alignment Pulmonary/Respiratory: Chest non-tender. Clear bilateral breath sounds, no crackles, no wheezing. Cardiovascular/Chest: Tachycardia, irregular rhythm. No murmurs. No JVD. Peripheral Pulses: 2+ Radial (R). 2+ Radial (L). 2+ Pedal (R). 2+ Pedal (L) Abdominal Exam: Normal bowel sounds. Soft. normal abdomen, no visible veins, Nontender. No hepatospenomegaly. No masses Ankle Exam: Negative ankle edema Lower extremities: Negative lower extremity edema Neuro/Mental Status: A&O x4. Coherent. Thoughts/Psych: Normal thought pattern. Appropriate mood and affect. Good judgement and insight Skin Exam: Normal inspection. Normal color. Warm. Dry laboratory and microbiology Laboratory Tests 11/12/24 06:39 Test 11/12/24 06:39 Range/Units Serum Glucose 122 H 74-106 mg/dL Labs and/or images reviewed: Labs reviewed by me, Image(s) reviewed by me Problem List/Assessment/Plan Problem List/Assessment/Plan Atrial fibrillation with RVR Brief nonsustained V-tach 3 beats prolonged QTc - IV diltiazem 5 milligram/hour drip - IV magnesium rider 1 g - Eliquis 5 mg b.i.d. - metoprolol succinate 50 mg daily - cardiology on board; scheduled for left heart cath today - IV NS 250 cc bolus once Questionable community-acquired pneumonia, Gram-positive versus Gram-negative - doxycycline 100 mg p.o. b.i.d. Possible acute on chronic systolic versus diastolic heart failure - CXR: Cardiomegaly with mild central vascular congestion - BNP 500 - ordered echocardiogram - IV Lasix 40 mg daily Obstructive sleep apnea, on CPAP - CPAP at night Type 2 diabetes, Hb A1c 6.8 Hypertension Coronary artery disease - atorvastatin, clopidogrel History of peptic ulcer disease - Pepcid 20 mg p.o. b.i.d. Mild transaminitis -monitor Goals of care: Full code w cardioversion and intubation, however, palliative extubation if needed, discussed for >16 minutes on 11/10/2024 Plan discussed with patient Plan discussed with Dr. Mansfield Plan discussed with: Patient, Other (RN) Date of Service: Nov 12, 2024 Billing Provider: VJ MANSFIELD MD Common Visit Codes: [id number] INP/OBS CARE(HIGH) THAIS REYNOSO RESIDENT Nov 12, 2024 16:52 VJ MANSFIELD MD Nov 15, 2024 21:53
--- NOTE | 2024-11-12 19:26 | DVHPN2 ---
Consult Progress Note Subjective Other Systems: Patient was seen and evaluated in follow up. Patient remains in atrial fibrillation with uncontrolled rate on monitor (fluctuating 110's-130's). Patient recieving Digoxin. Telemetry reviewed. Objective vital signs Vital Sign Date Time Temp Pulse Resp B/P (MAP) Pulse Ox O2 Delivery O2 Flow Rate FiO2 11/12/24 17:03 98.1 66 17 114/89 (97) 96 98.1 11/12/24 08:05 Room Air* 0 21 Total Intake and Output 11/11/24 11/11/24 11/12/24 15:00 23:00 07:00 Intake Total 350 ml Output Total 300 ml 600 ml Balance -300 ml -250 ml medications Current Medications Medications Dose Ordered Sig/Christian Route Start Time Stop Time Status Last Admin Dose Admin Nitroglycerin 0.4 mg Q5MINP PRN SL 11/09/24 21:30 Morphine Sulfate 2 mg Q30M PRN IV 11/09/24 21:30 Apixaban 5 mg BID PO 11/09/24 22:00 11/12/24 09:07 5 MG Furosemide 40 mg DAILY IV 11/10/24 10:00 11/12/24 09:09 40 MG Famotidine 20 mg Q12HR PO 11/09/24 22:00 11/12/24 09:08 20 MG Clopidogrel Bisulfate 75 mg DAILY PO 11/10/24 10:00 11/10/24 09:41 75 MG Metoprolol Succinate 50 mg DAILY PO 11/11/24 10:00 11/12/24 09:08 50 MG Atorvastatin Calcium 40 mg HS PO 11/10/24 22:00 11/11/24 21:39 40 MG Doxycycline Monohydrate 100 mg Q12HR PO 11/10/24 22:00 11/12/24 09:32 100 MG Empaglifozin 10 mg DAILY PO 11/12/24 10:00 11/12/24 09:08 10 MG Lisinopril 2.5 mg DAILY PO 11/12/24 10:00 11/12/24 09:07 2.5 MG Digoxin 0.125 mg DAILY PO 11/12/24 10:00 11/12/24 09:08 0.125 MG Spironolactone 25 mg DAILY PO 11/13/24 10:00 Examination: GENERAL:Normal, HEENT:Normal, NECK:Normal, LUNGS:Normal, CVS:Normal, ABDOMEN:Normal, MSK:Normal, SKIN:Normal, NEURO:Normal laboratory and microbiology Laboratory Tests 11/12/24 06:39 Test 11/12/24 06:39 Range/Units Serum Glucose 122 H 74-106 mg/dL Problem List/Assessment/Plan Problem List/Assessment/Plan Atrial fibrillation with rapid ventricular response (on Eliquis). Acute on chronic HFrEF, NYHA class III, newly diagnosed. Nonischemic cardiomyopathy. Hypertension. Dyslipidemia. Type 2 diabetes mellitus. History of CVA (on Plavix). History of peptic ulcer disease. BPH. Obstructive sleep apnea with CPAP use at night. Plan/Recommendation: Continued all current supportive medical care. Patient has been seen by Patria Latham NP on my behalf, her and I discussed the plan with the patient. Echocardiogram reveals EF 20-25%. Continue guideline directed medical therapy for CHF as tolerated. [id number] VASc score: 3 points, HAS-BLED score: 2 points. Digoxin for rate control. Up titrate beta-nadia as tolerated. Continue home dose Eliquis. Lipid-lowering agent. Monitor and replete electrolytes as needed, keep potassium greater than four and magnesium greater than two. Cardiac surveillance. LifeVest. Additional plan as per the hospital course. Plan discussed with: Patient Date of Service: Nov 12, 2024 Billing Provider: DARNELL ESPINOZA MD Cardiology Common Codes: [id number] HOSP CARE(High DARNELL ESPINOZA MD Nov 12, 2024 18:07
[2024-11-13] VITALS (7 sets, daily range): BP systolic 95–121; BP diastolic 66–87; PULSE 55–123; RESP 17–19; TEMP 97.4–98.1; O2SAT 96–99
[2024-11-13] MEDS: METOPROLOL TARTRATE 1MG/1ML-5ML VIAL IV ONE (09:39)
[2024-11-13] MEDS: SPIRONOLACTONE 25 MG TAB PO SCH (09:42)
[2024-11-13] MEDS ORDERED: SPIRONOLACTONE 25 MG TAB PO SCH (10:00)
--- NOTE | 2024-11-13 12:53 | DVHPN2 ---
Consult Progress Note Subjective Patient reports: No new complaints Review of Systems: CVS:Normal (Denies overnight or current chest pain, palpitation, shortness of breath.) Objective vital signs Vital Sign Date Time Temp Pulse Resp B/P (MAP) Pulse Ox O2 Delivery O2 Flow Rate FiO2 11/13/24 11:32 121/69 11/13/24 11:31 105 11/13/24 08:56 97.4 17 96 97.4 11/13/24 08:00 Room Air* 0 21 Total Intake and Output 11/12/24 11/12/24 11/13/24 15:00 23:00 07:00 Intake Total 400 ml 300 ml Output Total 300 ml Balance 100 ml 300 ml medications Current Medications Medications Dose Ordered Sig/Christian Route Start Time Stop Time Status Last Admin Dose Admin Nitroglycerin 0.4 mg Q5MINP PRN SL 11/09/24 21:30 Morphine Sulfate 2 mg Q30M PRN IV 11/09/24 21:30 Apixaban 5 mg BID PO 11/09/24 22:00 11/13/24 09:41 5 MG Furosemide 40 mg DAILY IV 11/10/24 10:00 11/13/24 09:42 40 MG Famotidine 20 mg Q12HR PO 11/09/24 22:00 11/13/24 09:41 20 MG Clopidogrel Bisulfate 75 mg DAILY PO 11/10/24 10:00 11/13/24 09:41 75 MG Metoprolol Succinate 50 mg DAILY PO 11/11/24 10:00 11/13/24 11:31 50 MG Atorvastatin Calcium 40 mg HS PO 11/10/24 22:00 11/12/24 21:54 40 MG Doxycycline Monohydrate 100 mg Q12HR PO 11/10/24 22:00 11/13/24 09:41 100 MG Empaglifozin 10 mg DAILY PO 11/12/24 10:00 11/13/24 09:41 10 MG Lisinopril 2.5 mg DAILY PO 11/12/24 10:00 11/13/24 11:32 2.5 MG Digoxin 0.125 mg DAILY PO 11/12/24 10:00 11/13/24 09:42 0.125 MG Spironolactone 25 mg DAILY PO 11/13/24 10:00 11/13/24 09:42 25 MG Examination: CVS:Abnormal (Atrial fibrillation with RVR HR 110-120) laboratory and microbiology Laboratory Tests 11/12/24 06:39 Test 11/12/24 06:39 Range/Units Serum Glucose 122 H 74-106 mg/dL Problem List/Assessment/Plan Problem List/Assessment/Plan Problem List/Assessment/Plan Atrial fibrillation with rapid ventricular response (on Eliquis) Acute on chronic HFrEF, NYHA class III, newly diagnosed Nonischemic cardiomyopathy Hypertension Dyslipidemia Type 2 diabetes mellitus History of CVA (on Plavix) History of peptic ulcer disease BPH Obstructive sleep apnea with CPAP use at night Plan/Recommendation (Dr. Chand): * Echocardiogram reveals EF 20-25% * Continue guideline directed medical therapy for CHF as tolerated * [id number] VASc score: 3 points, HAS-BLED score: 2 points * Digoxin for rate control * Up titrate beta-nadia as tolerated * Continue home dose Eliquis * Lipid-lowering agent * Monitor and replete electrolytes as needed, keep potassium greater than four and magnesium greater than two * Cardiac surveillance * LifeVest * IV metoprolol 5 mg x 1. Continue p.o. metoprolol titrate as tolerated. Case Discussed with Dr Chand. S/p coronary angiogram with left heart catheterization with no catheter based intervention on 11/11/24. At this time, we will continue with medical management. The patient may qualify for a LifeVest. Plan discussed with the patient and his daughter at bedside. Both patient in his daughter are agreeable. LifeVest delivered. If no improvement in EF within 3-6 months on guideline directed medical therapy for CHF, the patient may qualify for ICD implantation. If heart rate remains stable may discharge this afternoon from Cardiology standpoint. Thank you for allowing us to care for this patient. Please call with any questions or concerns. Critical care, time spent: 40 minutes This medical document was created using an electronic medical record system with voice recognition software and computerized dictation system. Although this document has been carefully reviewed, there might still be some phonetic and typographical errors. Occasional wrong-word or ``sound-alike substitutions may have occurred due to the inherent limitations of voice recognition software. These areas are purely typographical due to imperfections of the software programs and do not reflect any compromise in the patient's medical care. Please read the chart carefully and recognize, using context, where these substitutions have occurred. Thank you for allowing me to participate in the management of this patient. The treatment plan was discussed with and agreed upon by patient/family including requesting consultants and ordering of imaging/procedures. Plan discussed with: Patient Date of Service: Nov 13, 2024 Billing Provider: XIAO EUCEDA Common Visit Codes: [id number] INP/OBS CARE(HIGH), [id number] CARE 30-74 MIN XIAO EUCEDA Nov 13, 2024 12:53
[2024-11-13] MEDS ORDERED: EMPA1TAB PO (13:17)
[2024-11-13] MEDS ORDERED: METO-289 PO (13:17)
[2024-11-13] MEDS ORDERED: SPIR25TA8 PO (13:17)
[2024-11-13] MEDS ORDERED: LISI2.5T47 PO (13:17)
[2024-11-13] MEDS ORDERED: DIGO125T11 PO (13:17)
[2024-11-13] MEDS ORDERED: FURO1TAB33 PO (13:17)
[2024-11-13] MEDS ORDERED: ATOR40TA52 PO (13:17)
[2024-11-13] MEDS ORDERED: ASPI-498 OR (13:17)
--- NOTE | 2024-11-13 14:02 | DVHDSRES ---
Discharge Summary Date of Admission Resident Creating Document: THAIS REYNOSO RESIDENT Nov 09, 2024 at 21:18 Date of Discharge: Nov 13, 2024 Admitting Diagnosis dyspnea Labs/Diagnostic Data: Laboratory Results Test 11/12/24 06:39 11/10/24 10:33 11/10/24 00:45 11/09/24 23:15 White Blood Count 5.2 10^3/uL (4.4-10.8) Red Blood Count 4.53 10^6/uL (4.5-5.90) Hemoglobin 15.0 g/dL (13.5-17.5) Hematocrit 42.7 % (41.0-53.0) Mean Corpuscular Volume 94.3 fL (80.0-100.0) Mean Corpuscular Hemoglobin 33.1 pg (28.0-32.0) Mean Corpuscular Hemoglobin Concent 35.1 g/dL (32.0-36.0) Red Cell Distribution Width 12.6 % (11.8-14.3) Platelet Count 224 10^3/uL (140-450) Mean Platelet Volume 7.6 fL (6.9-10.8) Neutrophils (%) (Auto) 44.5 % (37.0-80.0) Lymphocytes (%) (Auto) 40.0 % (10.0-50.0) Monocytes (%) (Auto) 10.4 % (0.0-12.0) Eosinophils (%) (Auto) 4.8 % (0.0-7.0) Basophils (%) (Auto) 0.3 % (0.0-2.0) Neutrophils # (Auto) 2.3 10 ^3/uL (1.6-8.6) Lymphocytes # (Auto) 2.1 10 ^3/uL (0.4-5.4) Monocytes # (Auto) 0.5 10 ^3/uL (0-1.3) Eosinophils # (Auto) 0.3 10 ^3/uL (0-0.8) Basophils # (Auto) 0 10 ^3/uL (0-0.2) Nucleated Red Blood Cells 0.1 % Sodium Level 140 mmol/L (136-145) Potassium Level 3.7 mmol/L (3.5-5.1) Chloride Level 105 mmol/L (98-107) Carbon Dioxide Level 27 mmol/L (20-31) Anion Gap 8 (5-15) Blood Urea Nitrogen 21 mg/dL (9-23) Creatinine 1.27 mg/dL (0.700-1.30) Glomerular Filtration Rate Calc 63 mL/min (>90) BUN/Creatinine Ratio 16.5 (10.0-20.0) Serum Glucose 122 mg/dL (74-106) Calcium Level 9.7 mg/dL (8.7-10.4) Magnesium Level 2.2 mg/dL (1.6-2.6) Hemoglobin A1c 6.8 % A1C (<5.7) Triglycerides Level 203 mg/dL (< 150) Cholesterol Level 175 mg/dL (< 200) LDL Cholesterol 127 mg/dL (< 100) HDL Cholesterol 32 mg/dL (40-59) Thyroid Stimulating Hormone (TSH) 4.92 uIU/mL (0.55-4.78) Free Thyroxine (T4) Calculated 1.28 ng/dL (0.89-1.76) Free Triiodothyronine (T3) pg/mL 4.37 pg/mL (2.3-4.2) Influenza Type A Antigen Negative (Negative) Influenza Type B Antigen Negative (Negative) SARS-CoV-2 Antigen (Rapid) Negative (NEGATIVE) Urine Color Yellow (Yellow) Urine Clarity Clear (Clear) Urine pH 5.5 (5.0-9.0) Urine Specific [place] 1.027 (1.001-1.035) Urine Protein Trace (Negative) Urine Ketones Negative (Negative) Urine Blood Negative /uL (Negative) Urine Nitrite Negative (Negative) Urine Bilirubin Negative (Negative) Urine Urobilinogen Normal mg/dL (Negative) Urine Leukocyte Esterase Negative /uL (Negative) Urine RBC 4 /hpf (0 - 3) Urine WBC 1 /hpf (0 - 3) Urine Squamous Epithelial Cells Few /hpf (<5) Urine Bacteria Few /hpf (None Seen) Urine Mucus Few (None Seen) Urine Glucose Normal mg/dL (Normal) Urine Opiates Screen Neg (NEGATIVE) Urine Fentanyl Screen Neg (NEGATIVE) Urine Barbiturates Screen Neg (NEGATIVE) Urine Phencyclidine Screen Neg (NEGATIVE) Urine Amphetamines Screen Neg (NEGATIVE) Urine Benzodiazepines Screen Neg (NEGATIVE) Urine Cocaine Screen Neg (NEGATIVE) Urine Cannabinoids Screen Neg (NEGATIVE) Test 11/09/24 19:42 11/09/24 18:50 Troponin I High Sensitivity 28 ng/L (</=54) Prothrombin Time 11.9 sec (9.3-11.8) Prothrombin Time INR 1.13 (0.9-1.15) Activated Partial Thromboplast Time 26.7 SEC (24.5-34.5) Total Bilirubin 1.0 mg/dL (0.2-1.0) Aspartate Amino Transferase (AST) 59 U/L (13-40) Alanine Aminotransferase (ALT) 90 U/L (7-40) Alkaline Phosphatase 71 U/L (46-116) B-Type Natriuretic Peptide 508.01 pg/mL (0-100) Total Protein 6.7 g/dL (5.7-8.2) Albumin 4.4 g/dL (3.2-4.8) Other Laboratory Tests 11/12/24 06:39 Brief Hx & Hospital Course: Patient is a 63-year-old male with past medical history of atrial fibrillation, hypertension, obstructive sleep apnea, prediabetes, diverticulitis, peptic ulcer disease, benign prostatic hyperplasia, who came in due to shortness of breath. According to the patient, he has been experiencing intermittent shortness of breath where he feels like he can not catch his breath, also notes counting to get air. He notes he had 2-3 episodes today which were brief and lasted a few seconds, however, he notes yesterday he had an episode of shortness of breaths/dyspnea where he felt like he was "starving for oxygen" that lasted approximately 2 minutes which prompted this visit to the hospital. At the time of seeing the patient, he had similar episode of dyspnea where he was noted to have a brief nonsustained V-tach for 3 beats. Patient is also noted to have a prolonged QTC, Cardiology on board. Hospital course: Chest x-ray showed cardiomegaly with mild central vascular congestion, BNP was 500. Echocardiogram showed severely decreased systolic function with ejection fraction 20-25%, diastolic function is indeterminate as the patient is in atrial fibrillation at the time of the study. Normal right ventricular size and systolic function, no hemodynamically significant valvular disease. PA systolic pressure is estimated at 28 mmHg. Cardiology was consulted. Patient underwent left heart catheterization which showed Aortic pressure was 130/70 mm Hg, LVEDP was 9 mm Hg. There is no significant gradient on LV to aorta pullback. Normal left ventricular end-diastolic pressure. Ectatic coronary vessels with slow flow throughout. [id number] multivessel coronary artery disease. Nonischemic cardiomyopathy. Patient was started on empagliflozin 10 mg, lisinopril 2.5 mg, digoxin 0.125 mg, spironolactone 25 mg and metoprolol 50 mg. Patient was also continued on CPAP for his sleep apnea. On the day of discharge, patient had improved vital signs and denied any active ongoing shortness of breath or dyspnea symptoms. Patient was also approved for a life vest by [employer] which was delivered at bedside. Discharge plan and plan of care was explained to patient and his son at bedside in detail where all questions were answered and concerns addressed. Patient was prescribed GDM T to take at home along with aspirin, atorvastatin. His hospital course was uncomplicated. General Appearance: Cooperative. Well developed. Well nourished. NAD Head Exam: Normal inspection Neck Exam: Normal inspection. Non-tender. Normal alignment Pulmonary/Respiratory: Chest non-tender. Clear bilateral breath sounds, no crackles, no wheezing. Cardiovascular/Chest: Normal rate No murmurs. No JVD. Peripheral Pulses: 2+ Radial (R). 2+ Radial (L). 2+ Pedal (R). 2+ Pedal (L) Abdominal Exam: Normal bowel sounds. Soft. normal abdomen, no visible veins, Nontender. No hepatospenomegaly. No masses Ankle Exam: Negative ankle edema Lower extremities: Negative lower extremity edema Neuro/Mental Status: A&O x4. Coherent. Thoughts/Psych: Normal thought pattern. Appropriate mood and affect. Good judgement and insight Skin Exam: Normal inspection. Normal color. Warm. Dry Consults/Reason for consult Cardiology: Atrial fibrillation and heart failure with reduced ejection fraction Operations or Procedures ORDERING PHYSICIAN: THAIS REYNOSO RESIDENT PROCEDURE(s): ECIDC - ECHO 2D MODE CARDIAC DOP REASON: dyspnea ORDER NUMBER(s): [id number], ACCESSION NUMBER(s): [id number] APPROVED REPORT EXAM: Two-dimensional and M-mode echocardiogram with Doppler and color Doppler. Blood Pressure: 107/83 mmHg RISK FACTORS Height: 5'5, Weight: 180 DIMENSIONS LVDd 4.9 (3.8-5.7cm) LA (2D) 3.7 (1.9-4.0cm) Aortic Root 3.4 (2.0- 3.7cm) LVDs 4.6 (2.5-4.0cm) LA (MM) (1.9-4.0cm) Aortic Cusp Exc 1.3 (1.5- 2.0cm) EF (%) 25.0 (55-70%) Rt. Atrium 3.5 (1.9-4.0cm) Asc. Aorta 3.4 cm IVSd 1.0 (0.7-1.1cm) RV (D) (1.8-2.4cm) PWd 1.0 (0.7-1.1cm) Mitral Valve Mitral Mitral Stenosis E wave 0.97m/s MV Mean GR. 2mmHg A wave m/s MV Peak GR. 81mmHg E/A ratio 0.0 2D MVA cm2 Aortic Valve Aortic Valve Aortic Stenosis V1 0.75m/s AO Mean GR. 2mmHg V2 0.94m/s AO Peak GR. 4mmHg LVOT Diameter 2.3 (1.8-2.4cm) Doppler ROBERTA 3.31cm2 Pulmonic Valve V2 0.66m/s Tricuspid Valve TR Velocity 2.19m/s RVSP 28mmHg LEFT VENTRICLE Normal left ventricular size. Wall thickness is normal. Ejection fraction is severely decreased and is estimated at 20-25% based on visual estimate. There is severe global hypokinesis. Diastolic function is indeterminate as patient is in atrial fibrillation at the time of the study. RIGHT VENTRICLE The right ventricle is of normal size and systolic function. ATRIA The left atrium is severely dilated in size. Right atrium is of normal size. MITRAL VALVE Normal structure and function. There is mild central mitral regurgitation. PULMONIC VALVE Likely normal. TRICUSPID VALVE Normal structure and function. There is mild tricuspid regurgitation. PA systolic pressure is estimated at 28 mm Hg. AORTIC VALVE Normal structure and function. GREAT VESSELS The aortic root is of normal size. Proximal ascending aorta is of normal size. PERICARDIAL EFFUSION There is no pericardial effusion. IVC is dilated in size. Conclusion Normal left ventricular size with severely decreased systolic function. Ejection fraction is estimated at 20-25%. Diastolic function is indeterminate as patient is in atrial fibrillation at the time of the study. Normal right ventricular size and systolic function. No hemodynamically significant valvular disease. PA systolic pressure is estimated at 28 mm Hg. Operative Report - 2 Operative Report - 2 Report Details Date: 11/11/24 Preop Diagnosis: Patient presented with shortness of breath. He was diagnosed with atrial fibrillation with rapid ventricular response and acute heart failure exacerbation. Echo showed severely decreased left ventricular systolic function with ejection fraction of 20%. Postop Diagnosis: 1. Normal left ventricular end-diastolic pressure. 2. Ectatic coronary vessels with mild to moderate disease and slow flow throughout. 3. No significant obstructive coronary artery disease. 4. Nonischemic cardiomyopathy. Surgeon: Hans Sinha MD Anesthesiologist: Patient was deemed an adequate candidate for conscious sedation. Versed and fentanyl were given during the procedure. He was given 1 mg of Versed and25 mcg of fentanyl. I was available for continued [id number]-[id number] monitoring throughout the procedure. Anesthesia: Local Consent: The patient was informed of the risks and benefits of the procedure. These include but are not limited to complications of anesthesia, postoperative infection, incomplete relief of symptoms, recurrence of symptoms, damage to blood vessels, nerves and tendons, deep venous thrombosis, pulmonary embolism and possible need for repeat surgery in the future. Complications: None Estimated Blood Loss: 10 cc Name of Procedure Performed 1. Left heart catheterization. 2. Selective coronary angiography. 3. Moderated sedation. Procedure Details Procedure Details: The patient was brought to the cardiac cath tech in a stable condition. Patient was found to have normal pulses in the right radial artery. The right wrist area was sterilized and draped in a sterile fashion. The skin was anesthetized using 1% lidocaine. Access in the right radial artery was obtained using a Seldinger approach. An 11 cm sheath was placed in the right radial artery. The left heart catheterization, left coronary angiography, and right coronary angiography were performed using a5 Maltese tiger catheter. At the completion of the procedure hemostasis in radial artery was obtained using a TR band. Findings: Hemodynamics: Aortic pressure was 130/70 mm Hg, LVEDP was 9 mm Hg. There is no significant gradient on LV to aorta pullback. Coronary angiography: The left main coronary artery is a normal caliber trifurcating vessel. It is free of any significant disease. The left anterior descending artery is mildly ectatic vessel with mild diffuse disease. There is significant slow flow throughout the vessel. Diagonal branch is with no significant stenosis but with slow flow. Ramus intermedius branch is of normal size with mild disease. The left circumflex artery is a normal-caliber nondominant vessel. It has mild diffuse disease and mild ectasia. There is slow flow throughout the vessel. There is a large left posterolateral branch with no significant stenosis. The right coronary artery is a normal caliber and dominant vessel. There is moderate ectasia throughout the vessel with mild diffuse disease. Distal vessel has discrete 50% stenosis. RPDA and right posterolateral branches has mild disease. There is slow flow throughout the RCA. Impressions: 1. Normal left ventricular end-diastolic pressure. 2. Ectatic coronary vessels with slow flow throughout. 3. [id number] multivessel coronary artery disease. 4. Nonischemic cardiomyopathy. Plan: 1. Medical therapy for coronary artery disease. 2. Optimize medical therapy for cardiomyopathy. 3. Risk factors modifications. Condition at Discharge: Good Final Diagnosis/Problems List Atrial fibrillation with RVR Brief nonsustained V-tach 3 beats prolonged QTc Questionable community-acquired pneumonia, Gram-positive versus Gram-negative Possible acute on chronic systolic versus diastolic heart failure Obstructive sleep apnea, on CPAP Type 2 diabetes, Hb A1c 6.8 Hypertension Coronary artery disease History of peptic ulcer disease Mild transaminitis Discharge Disposition: Home Discharge Instruct/Medications Diet: Consistent carbohydrate, Cardiac 2g Na,low cholest Activity: No Restrictions, As Tolerated Follow Up/Referral: Please follow up with Cardiology in the outpatient clinic Please follow up with PCP in 1-2 weeks Medications: Plavix 75mg Atorvastatin 40 mg Lisinopril 2.5 mg Digoxin 0.125 mg Empagliflozin 10 mg Furosemide 20 mg Metoprolol succinate 50 mg Spironolactone 25 mg Discharge Statement: "Patient was advised to return to the ER or call 911 if any headaches, dizziness, shortness of breath, chest pain, abdominal pain, bleeding, fevers, or worsening of medical condition. Patient was counseled about treatment plan, medications, possible side effects, patientverbalized understanding. All questions were answered to the best of my ability. This discharge took greater then 30 minutes in planning, reviewing documentation, counseling the patient, and discussing with other team members." ASSESSMENT ASSESSMENT Assessment Atrial fibrillation with RVR Brief nonsustained V-tach 3 beats prolonged QTc Questionable community-acquired pneumonia, Gram-positive versus Gram-negative Possible acute on chronic systolic versus diastolic heart failure Obstructive sleep apnea, on CPAP Type 2 diabetes, Hb A1c 6.8 Hypertension Coronary artery disease History of peptic ulcer disease Mild transaminitis Date of Service: Nov 13, 2024 Billing Provider: VJ MANSFIELD MD Common Visit Codes: 53363-DGH/OBS DISCH DAY >30min REYNOSOTHAIS RESIDENT Nov 13, 2024 14:02 VJ MANSFIELD MD Nov 15, 2024 21:54
[2024-11-13] MEDS ORDERED: CLOP75TA70 PO (16:05)
--- NOTE | 2024-11-13 19:40 | DVHPN2 ---
Consult Progress Note Subjective Other Systems: Patient was seen and evaluated in follow up. Denies overnight or current chest pain, palpitation, shortness of breath. Patient is cardiac stable for discharge. Objective vital signs Vital Sign Date Time Temp Pulse Resp B/P (MAP) Pulse Ox O2 Delivery O2 Flow Rate FiO2 11/13/24 13:19 97.8 83 17 106/87 (93) 97 97.8 11/13/24 08:00 Room Air* 0 21 Total Intake and Output 11/12/24 11/12/24 11/13/24 15:00 23:00 07:00 Intake Total 400 ml 300 ml Output Total 300 ml Balance 100 ml 300 ml Examination: GENERAL:Normal, HEENT:Normal, NECK:Normal, LUNGS:Normal, CVS:Abnormal, ABDOMEN:Normal, MSK:Normal, SKIN:Normal, NEURO:Normal laboratory and microbiology Laboratory Tests 11/12/24 06:39 Test 11/12/24 06:39 Range/Units Serum Glucose 122 H 74-106 mg/dL Problem List/Assessment/Plan Problem List/Assessment/Plan Atrial fibrillation with rapid ventricular response (on Eliquis). Acute on chronic HFrEF, NYHA class III, newly diagnosed. Nonischemic cardiomyopathy. Hypertension. Dyslipidemia. Type 2 diabetes mellitus. History of CVA (on Plavix). History of peptic ulcer disease. BPH. Obstructive sleep apnea with CPAP use at night. Plan/Recommendation: Continued all current supportive medical care. Patient has been seen by Manav Burnham NP on my behalf, him and I discussed the plan with the patient. Echocardiogram reveals EF 20-25%. Continue guideline directed medical therapy for CHF as tolerated. [id number] VASc score: 3 points, HAS-BLED score: 2 points. Digoxin for rate control. Up titrate beta-nadia as tolerated. Continue home dose Eliquis. Lipid-lowering agent. Monitor and replete electrolytes as needed, keep potassium greater than four and magnesium greater than two. Cardiac surveillance. LifeVest. IV metoprolol 5 mg x 1. Continue p.o. metoprolol titrate as tolerated. S/p coronary angiogram with left heart catheterization with no catheter based intervention on 11/11/24. At this time, we will continue with medical management. The patient may qualify for a LifeVest. Plan discussed with the patient and his daughter at bedside. Both patient in his daughter are agreeable. LifeVest delivered. If no improvement in EF within 3-6 months on guideline directed medical therapy for CHF, the patient may qualify for ICD implantation. If heart rate remains stable may discharge this afternoon from Cardiology standpoint. Additional plan as per the hospital course. Plan discussed with: Patient Date of Service: Nov 13, 2024 Billing Provider: DARNELL ESPINOZA MD Cardiology Common Codes: 30772-[id number] HOSP CARE(High DARNELL ESPINOZA MD Nov 13, 2024 17:54
== END 2024-11-13 16:40 | disposition home or self-care (01) | DRG 192 ==
LOC: EDBD 17:53 → ER 17:53 → TELE 21:18 → TELE-EAST 11-11 15:42
PROVIDERS: ADMIT Student in an Organized Health Care Education/Training Program; ATTEND Student in an Organized Health Care Education/Training Program
PROC: 5A09357 Assistance with Respiratory Ventilation, Less than 24 Consecutive Hours, Continuous Positive Airway Pressure (ICD-10-PCS; 2024-11-10)
PROC: 4A023N7 Measurement of Cardiac Sampling and Pressure, Left Heart, Percutaneous Approach (ICD-10-PCS; principal; 2024-11-11)
PROC: B2111ZZ Fluoroscopy of Multiple Coronary Arteries using Low Osmolar Contrast (ICD-10-PCS; 2024-11-11)
PROC: 5A09357 Assistance with Respiratory Ventilation, Less than 24 Consecutive Hours, Continuous Positive Airway Pressure (ICD-10-PCS; 2024-11-11)
PROC: 5A09357 Assistance with Respiratory Ventilation, Less than 24 Consecutive Hours, Continuous Positive Airway Pressure (ICD-10-PCS; 2024-11-12)
DX: I11.0 Hypertensive heart disease with heart failure (principal); J15.69 Pneumonia due to other Gram-negative bacteria; I47.20 Ventricular tachycardia, unspecified; I42.8 Other cardiomyopathies; J15.9 Unspecified bacterial pneumonia; I48.91 Unspecified atrial fibrillation; I50.43 Acute on chronic combined systolic (congestive) and diastolic (congestive) heart failure; I25.10 Atherosclerotic heart disease of native coronary artery without angina pectoris; E11.9 Type 2 diabetes mellitus without complications; E78.5 Hyperlipidemia, unspecified; N40.0 Benign prostatic hyperplasia without lower urinary tract symptoms; G47.33 Obstructive sleep apnea (adult) (pediatric); R74.01 Elevation of levels of liver transaminase levels; Z79.01 Long term (current) use of anticoagulants; Z80.42 Family history of malignant neoplasm of prostate; Z82.49 Family history of ischemic heart disease and other diseases of the circulatory system; Z86.73 Personal history of transient ischemic attack (TIA), and cerebral infarction without residual deficits; Z87.11 Personal history of peptic ulcer disease; Z79.4 Long term (current) use of insulin
CPT/HCPCS: 36415; 71045; 80048; 80053; 80061; 80307; 81001; 83036; 83735; 83880; 84439; 84443; 84481; 84484; 85025; 85610; 85730; 87426; 87804; 93005; 93306; 93458; 94660; 99152; G0378; J2250; J2405; Q9967

== ENCOUNTER 2024-12-10 14:34 | Emergency (ER) | payer MEDICAID ==
[~2024-12-10] VITALS: Ht 170.2 cm; Wt 73.5 kg
[~2024-12-10 14:34] MED LIST changes: +ATOR40TA52 PO; -CIPR-173 PO; +CLOP75TA70 PO; +DIGO125T11 PO; +EMPA1TAB PO; -ENAL1TAB42 PO; +FURO1TAB33 PO; +LISI2.5T47 PO; -MET25T PO; +METO-289 PO; -METR-344 PO; +SPIR25TA8 PO; -TERB250T92 PO
--- NOTE | 2024-12-10 14:51 | ED.PDOC ---
HPI Comments 64 year old male ANDERSON presents to the ED with chief complaint of defibrillator discharge. EMS reports patient had started to feel like his heart was racing earlier today while standing, then he noticed that his defibrillator was on and asked if he wished to delay the shock, which he did. EMS relays that the patient then went to lay down, but his heart rate went up from 157 to 162, which is when his daughter advised him to let the defibrillator shock him, which it did. EMS states his heart rate went down immediately afterwards. Patient notes that the defibrillator was placed 3 weeks ago in [facility] when he was last admitted for A-Fib w/ RVR. Patient reports that his net programmer is Dr. Alonso. Patient denies any chest pain, SOB, dizziness, headache, numbness, or weakness. Time Seen by MD: 14:46 Primary Care Provider: KARMEN Reviewed Notes: Nurses Notes, Check Examiner Notes, Medications, Allergies Allergies: Coded Allergies: NO KNOWN ALLERGIES (Unverified , 08/11/15) Home Meds Active Scripts Clopidogrel Bisulfate (CLOPIDOGREL) 75 Mg Tab, 75 MG PO DAILY for 30 Days, #30 TAB Prov:THAIS REYNOSO [facility] 11/13/24 Atorvastatin Calcium (ATORVASTATIN CALCIUM) 40 Mg Tab, 1 TAB PO DAILY for 30 Days, #30 TAB 5 Refills Prov:THAIS REYNOSO [facility] 11/13/24 Digoxin (Digox) 125 Mcg Tab, 125 MCG PO DAILY, #30 TAB 3 Refills Prov:THAIS REYNOSO [facility] 11/13/24 Spironolactone (Spironolactone) 25 Mg Tab, 1 TAB PO DAILY for 30 Days, #30 TAB 3 Refills Prov:THAIS REYNOSO [facility] 11/13/24 Metoprolol Succinate (Metoprolol Succinate Er) 50 Mg Tab, 1 TAB PO DAILY for 30 Days, #30 TAB 5 Refills Prov:THAIS REYNOSO [facility] 11/13/24 Lisinopril (Lisinopril) 2.5 Mg Tab, 1 TAB PO DAILY for 30 Days, #30 TAB 5 Refills Prov:THAIS REYNOSO [facility] 11/13/24 Furosemide (Lasix) 20 Mg Tb, 1 TAB PO DAILY for 30 Days, #30 TAB 3 Refills Prov:REYNOSO,[facility] 11/13/24 Empagliflozin (Jardiance) 10 Mg Tab, 10 MG PO DAILY for 30 Days, #30 TAB 3 Refills Prov:THAIS REYNOSO [facility] 11/13/24 Apixaban Base (ELIQUIS) 5 Mg Tab, 5 MG PO BID for 30 Days, #60 TAB 5 Refills Prov:MARLENI RUIZ MD 08/10/23 Olopatadine HCl (Olopatadine Hydrochloride) 0.2 % Ida, 0.2 % OP DAILY for 14 Days, #1 DROP Prov:MANDY VOGEL MD 07/29/23 Reported Medications Ferrous Sulfate (FERROUS SULFATE) 324 Mg Tab, 2 TAB PO DAILY 08/06/23 Tamsulosin Hcl (Tamsulosin Hcl) 0.4 Mg Cap, 1 CAP PO DAILY 03/29/23 Omeprazole (Omeprazole Dr) 20 Mg Cap, 1 CAP PO DAILY 03/29/23 Metformin Hydrochloride (Metformin Hcl) 500 Mg Tab, 1 TAB PO DAILY 03/29/23 Information Source: Patient, Emergency Med Personnel Mode of Arrival: EMS Severity: Moderate Timing: Hours Duration: Since onset Prehospital treatment: None Onset: At Rest Cardiac Risk Factors: Hyperlipidemia, HTN, Diabetes Associated Signs and Symptoms: None Past Medical History PAST MEDICAL HISTORY: AFIB, CHF, DM, High Lipids, HTN, PUD, Thyroid Surgical History (Other): Defibrillator Family History Family History: Reviewed,noncontributory to illness, Family hx of HTN Social History Smoker: Non-Smoker, Quit Greater Than 1 Year Alcohol: Denies ETOH Use Drugs: Denies Drug Use Lives In: Home Constitutional: denies: chills, diaphoresis, fatigue, fever, malaise, sweats, weakness, others EENTM: denies: blurred vision, double vision, ear bleeding, ear discharge, ear drainage, ear pain, ear ringing, eye pain, eye redness, hearing loss, mouth pain, mouth swelling, nasal discharge, nose bleeding, nose congestion, nose pain, photophobia, tearing, throat pain, throat swelling, voice changes, others Respiratory: denies: cough, hemoptysis, orthopnea, SOB at rest, shortness of breath, SOB with excertion, stridor, wheezing, others Cardiovascular: reports: palpitations, others (Tachycardia); denies: chest pain, dizzy spells, diaphoresis, Dyspnea on exertion, edema, irregular heart beat, left arm pain, lightheadedness, PND, syncope Gastrointestinal: denies: abdomen distended, abdominal pain, blood streaked bowels, constipated, diarrhea, dysphagia, difficulty swallowing, hematemesis, melena, nausea, poor appetite, poor fluid intake, rectal bleeding, rectal pain, vomiting, others Genitourinary: denies: burning, dysuria, flank pain, frequency, hematuria, incontinence, penile discharge, penile sore, pain, testicle pain, testicle swelling, urgency, others Neurological: denies: dizziness, fainting, headache, left sided numbness, left sided weakness, numbness, paresthesia, pre-existing deficit, right sided numbness, right sided weakness, seizure, speech problems, tingling, tremors, weakness, others Musculoskeletal: denies: back pain, gout, joint pain, joint swelling, muscle pain, muscle stiffness, neck pain, others Integumetry: denies: bruises, change in color, change in hair/nails, dryness, laceration, lesions, lumps, rash, wounds, others Allergic/Immunocompromised: denies: Difficulty Healing, Frequent Infections, Hives, Itching, others Hematologic/Lymphatic: denies: anemia, blood clots, easy bleeding, easy br uising, swollen glands, others Endocrine: denies: excessive hunger, excessive sweating, excessive thirst, excessive urination, flushing, intolerance to cold, intolerance to heat, unexplained weight gain, unexplained weight loss, others Psychiatric: denies: anxiety, bipolar disorder, depression, hopeless, panic disorder, schizophrenia, sleepless, suicidal, others All Other Systems: Reviewed and Negative Physical Exam General Appearance: No Apparent Distress HEENT: Normal ENT Inspection, Pharynx Normal, TMs Normal Neck: Full Range of Motion, Non-Tender, Normal, Normal Inspection Respiratory: Chest Non-Tender, Lungs Clear, No Accessory Muscle Use, No Respiratory Distress, Normal Breath Sounds Cardiovascular: No Edema, No JVD, No Murmur, No Gallop, Normal Peripheral Pulses, Regular Rate/Rhythm Breast Exam: Deferred Gastrointestinal: No Organomegaly, Non Tender, No Pulsatile Mass, Normal Bowel Sounds, Soft Genitalia: Deferred Pelvic: Deferred Rectal: Deferred Extremities: No calf tenderness, Normal capillary refill, Normal inspection, Normal range of motion, Non-tender, No pedal edema Musculoskeletal : Apperance: Normal Neurologic: Alert, mixer machine feeder II-XII nml as Tested, No Motor Deficits, Normal Affect, Normal Mood, No Sensory Deficits Cerebellar Function: Normal Reflexes: Normal Skin: Dry, Normal Color, Warm Lymphatic: No Adenopathy EKG EKG : Pulse Rate (adult): 74 [place]: LAD Cardiac Rhythm: NSR Block: None Hypertrophy: None ST: Normal Comments Low Voltage Was a procedure done? Was a procedure done?: No CP Differential Dx Differential Diagnosis: Angina, AL, Pulmonary Embolus Differential Diagnosis: CHF Differential Diagnosis: Pericarditis X-Ray, Labs, Meds, VS Vital Signs Date Time Temp Pulse Resp B/P (MAP) Pulse Ox O2 Delivery O2 Flow Rate FiO2 12/10/24 15:13 98.0 74 18 124/87 (99) 96 98.0 12/10/24 15:13 74 18 96 Room Air 12/10/24 14:51 74 12/10/24 14:47 98.7 87 17 126/87 (100) 98 12/10/24 14:46 74 Lab Test 12/10/24 16:42 12/10/24 15:11 12/10/24 14:55 Range/Units Troponin I High Sensitivity 6 6 </=54 ng/L Urine Color Light-yellow Yellow Urine Clarity Clear Clear Urine pH 5.5 5.0-9.0 Urine Specific [place] 1.024 1.001-1.035 Urine Protein Negative Negative Urine Ketones Trace Negative Urine Blood Negative Negative /uL Urine Nitrite Negative Negative Urine Bilirubin Negative Negative Urine Urobilinogen Normal Negative mg/dL Urine Leukocyte Esterase Negative Negative /uL Urine RBC <1 0 - 3 /hpf Urine Microscopic WBC < 1 0-3 /HPF Urine Squamous Epithelial Cells None seen <5 /hpf Urine Bacteria None seen None Seen /hpf Urine Glucose 4+ H Normal mg/dL White Blood Count 5.9 4.4-10.8 10^3/uL Red Blood Count 4.95 4.5-5.90 10^6/uL Hemoglobin 16.6 13.5-17.5 g/dL Hematocrit 46.7 41.0-53.0 % Mean Corpuscular Volume 94.3 80.0-100.0 fL Mean Corpuscular Hemoglobin 33.5 H 28.0-32.0 pg Mean Corpuscular Hemoglobin Concent 35.6 32.0-36.0 g/dL Red Cell Distribution Width 12.4 11.8-14.3 % Platelet Count 205 140-450 10^3/uL Mean Platelet Volume 7.7 6.9-10.8 fL Neutrophils (%) (Auto) 59.9 37.0-80.0 % Lymphocytes (%) (Auto) 29.5 10.0-50.0 % Monocytes (%) (Auto) 7.6 0.0-12.0 % Eosinophils (%) (Auto) 2.5 0.0-7.0 % Basophils (%) (Auto) 0.5 0.0-2.0 % Neutrophils # (Auto) 3.5 1.6-8.6 10 ^3/uL Lymphocytes # (Auto) 1.7 0.4-5.4 10 ^3/uL Monocytes # (Auto) 0.4 0-1.3 10 ^3/uL Eosinophils # (Auto) 0.1 0-0.8 10 ^3/uL Basophils # (Auto) 0 0-0.2 10 ^3/uL Nucleated Red Blood Cells 0.3 % Sodium Level 139 136-145 mmol/L Potassium Level 4.1 3.5-5.1 mmol/L Chloride Level 103 98-107 mmol/L Carbon Dioxide Level 27 20-31 mmol/L Anion Gap 9 5-15 Blood Urea Nitrogen 24 H 9-23 mg/dL Creatinine 1.40 H 0.700-1.30 mg/dL Glomerular Filtration Rate Calc 56 >90 mL/min BUN/Creatinine Ratio 17.1 10.0-20.0 Serum Glucose 133 H 74-106 mg/dL Calcium Level 10.0 8.7-10.4 mg/dL Magnesium Level 2.2 1.6-2.6 mg/dL The patient's CBC and chemistry panel is within normal limits The urine test is negative The patient has been pain-free here in the emergency department's We did consult with Dr. Alonso They did order for the patient to have the jacket replaced. The patient is now being discharged and will follow up with the net programmer Time of 1ST Reevaluation: 18:56 Reevaluation 1ST: Improved Patient Education/Counseling: Diagnosis, Treatment Family Education/Counseling: No Family Present Additional Information - I reviewed the following notes from patient's past medical encounters: 11/09/24 for A-Fib RVR - The following tests were ordered, and results were reviewed by me: (Labs, X- Ray, EKG): CBC, BMP, UA, Magnesium, Troponin, EKG, Chest XR - Additional information was gathered from interviewing the following independent Historian: (Family, Other Providers, EMT): EMS - I reviewed and agreed with the following test results read by other provider: (X-ray, CT, US): Chest XR - I discussed treatments and results with medical personnel. Departure 1 Departure Time of Disposition: 18:56 Impression: Primary Impression: AICD discharge Disposition: HOME / SELF CARE / HOMELESS Condition: Fair Discharged With: Self Critical Care Note Critical Care Time?: No Stability Stability form required: No Heart Score Heart Score: Heart Score Response (Comments) Value History Highly Suspicious 2 EKG Repolarization Disturb 1 Age 45-64 1 Risk Factors >3 or Hx ASHD 2 Troponin Normal limit 0 Total 6 I personally scribed for VÍCTOR DAHL MD ([email or web address]) on 12/10/24 at 14:51. Electronically submitted by Rober Weaver ([email or web address]). VÍCTOR DAHL MD Dec 10, 2024 14:51
[2024-12-10 15:16] LABS: Chloride 103 mmol/L (98-107); Potassium 4.1 mmol/L (3.5-5.1); Sodium 139 mmol/L (136-145)
[2024-12-10 15:17] LABS: Anion Gap 9 (5-15); Carbon Dioxide 27 mmol/L (20-31)
[2024-12-10 15:22] LABS: BUN/Creatinine Ratio 17.1 (10.0-20.0)
[2024-12-10 15:23] LABS: Magnesium 2.2 mg/dL (1.6-2.6)
[2024-12-10 15:24] LABS: Blood Urea Nitrogen 24 mg/dL (9-23); Glucose 133 mg/dL (74-106)
[2024-12-10 16:18] LABS: Urine Bacteria None Seen /hpf (None Seen)
[2024-12-10 16:20] LABS: Basophils # (auto) 0 10 ^3/uL (0-0.2); Basophils % (auto) 0.5 % (0.0-2.0); Eosinophils # (auto) 0.1 10 ^3/uL (0-0.8); Eosinophils % (auto) 2.5 % (0.0-7.0); Hematocrit 46.7 % (41.0-53.0); Hemoglobin 16.6 g/dL (13.5-17.5); Lymphocytes # (auto) 1.7 10 ^3/uL (0.4-5.4); Lymphocytes % (auto) 29.5 % (10.0-50.0); Mean Corpuscular Hemoglobin 33.5 pg (28.0-32.0); Mean Corpuscular Hgb Conc. 35.6 g/dL (32.0-36.0); Mean Corpuscular Volume 94.3 fL (80.0-100.0); Monocytes # (auto) 0.4 10 ^3/uL (0-1.3); Monocytes % (auto) 7.6 % (0.0-12.0); Neutrophils # (auto) 3.5 10 ^3/uL (1.6-8.6); Neutrophils % (auto) 59.9 % (37.0-80.0); Nucleated Red Blood Cells % 0.3 %; Platelet Count (auto) 205 10^3/uL (140-450); Red Blood Cells 4.95 10^6/uL (4.5-5.90); Red Cell Distribution Width 12.4 % (11.8-14.3); White Blood Cell 5.9 10^3/uL (4.4-10.8)
[2024-12-10 16:55] LABS: Urine Blood Negative /uL (Negative); Urine Clarity Clear (Clear); Urine Color Light-Yellow (Yellow); Urine Protein, UAD Negative (Negative); Urine Specific Gravity 1.024 (1.001-1.035); Urine Squamous Epithelial Cell None Seen /hpf (<5); Urine Urobilinogen Normal (Negative); Urine WBC < 1 /HPF (0-3); Urine pH 5.5 (5.0-9.0)
[2024-12-10 19:20] VITALS: BP 131/75; PULSE 65; RESP 16; TEMP 98.1; O2SAT 98
--- NOTE | 2024-12-13 14:24 | ECG ---
[facility] Test Date: 2024-12-10 Test Time: 14:46:42 Pat Name: Dino MOFFETT Department: ER Room: Gender: M Tableau Administrator: MURPHY : [id number] Requested By: VÍCTOR DAHL Order Number: [id number] Reading MD: You Alonso Measurements Intervals [place] Rate: 74 P: 46 VT: 169 QRS: -34 QRSD: 105 T: 60 QT: 392 QTc: 435 Interpretive Statements Sinus rhythm Left axis deviation Low voltage, precordial leads RSR' in V1 or V2, right VCD or RVH Consider anterior infarct Electronically Signed On 12-14-2024 19:23:14 PST by You Alonso Please click the below link to view image of tracing.
== END 2024-12-10 19:21 | disposition home or self-care (01) ==
LOC: ER 14:34 → EDBD 14:34 → ER 19:21
DX: T82.897A Other specified complication of cardiac prosthetic devices, implants and grafts, initial encounter (principal); I48.91 Unspecified atrial fibrillation; I11.0 Hypertensive heart disease with heart failure; I50.9 Heart failure, unspecified; E11.9 Type 2 diabetes mellitus without complications; E07.9 Disorder of thyroid, unspecified; Z87.11 Personal history of peptic ulcer disease; Z45.02 Encounter for adjustment and management of automatic implantable cardiac defibrillator; Z95.810 Presence of automatic (implantable) cardiac defibrillator; Z79.899 Other long term (current) drug therapy; Z79.84 Long term (current) use of oral hypoglycemic drugs; Z79.02 Long term (current) use of antithrombotics/antiplatelets; Z79.01 Long term (current) use of anticoagulants; Y92.89 Other specified places as the place of occurrence of the external cause
CPT/HCPCS: 36415; 80048; 81001; 83735; 84484; 85025; 93005

== ENCOUNTER → 2024-12-28 | Outpatient (CLI) | payer MEDICAID ==
[2024-12-28 07:25] LABS: % Iron Saturation 38.7 % (20-55)
[2024-12-28 07:27] LABS: Albumin 4.7 g/dL (3.2-4.8); Alkaline Phosphatase 71 U/L (46-116); Anion Gap 10 (5-15); Aspartate Aminotransferase 26 U/L (13-40); BUN/Creatinine Ratio 12.8 (10.0-20.0); Blood Urea Nitrogen 16 mg/dL (9-23); Calcium 9.9 mg/dL (8.7-10.4); Carbon Dioxide 25 mmol/L (20-31); Chloride 104 mmol/L (98-107); Potassium 4.2 mmol/L (3.5-5.1); Sodium 139 mmol/L (136-145)
[2024-12-28 07:28] LABS: Bilirubin, Total 0.9 mg/dL (0.2-1.0); Total Protein 7.4 g/dL (5.7-8.2)
[2024-12-28 07:38] LABS: Alanine Aminotransferase 47 U/L (7-40); Glucose 132 mg/dL (74-106)
== END | disposition home or self-care (01) ==
LOC: LAB 06:20
PROVIDERS: ATTEND Internal Medicine
DX: I11.0 Hypertensive heart disease with heart failure (principal); I50.22 Chronic systolic (congestive) heart failure
CPT/HCPCS: 36415; 80053; 80162; 83540; 83550; 83880

== ENCOUNTER → 2025-01-31 | Outpatient (CLI) | payer MEDICAID ==
[2025-01-31 07:16] LABS: Albumin 4.7 g/dL (3.2-4.8); Alkaline Phosphatase 60 U/L (46-116); Anion Gap 8 (5-15); BUN/Creatinine Ratio 11.6 (10.0-20.0); Blood Urea Nitrogen 14 mg/dL (9-23); Calcium 9.8 mg/dL (8.7-10.4); Carbon Dioxide 26 mmol/L (20-31); Chloride 106 mmol/L (98-107); Sodium 140 mmol/L (136-145); Total Protein 7.4 g/dL (5.7-8.2)
[2025-01-31 07:17] LABS: Aspartate Aminotransferase 32 U/L (13-40)
[2025-01-31 07:18] LABS: Alanine Aminotransferase 51 U/L (7-40); Glucose 128 mg/dL (74-106)
== END | disposition home or self-care (01) ==
LOC: LAB 06:12
PROVIDERS: ATTEND Internal Medicine
DX: I11.0 Hypertensive heart disease with heart failure (principal); I50.22 Chronic systolic (congestive) heart failure
CPT/HCPCS: 36415; 80053; 83880